=== PATIENT | male | born 1935 | race Caucasian/White ===

== ENCOUNTER → 2023-10-28 09:35 | Outpatient (REF) | payer OTHER, SELFPAY ==
[2023-10-28 11:21] LABS: Hematocrit 45.1 % (39.0-52.0); Hemoglobin 15.6 g/dL (13.0-18.0); Mean Corp Hgb Conc. 34.6 g/dL (33.0-37.0); Mean Corpuscular Volume 89.7 fL (80.0-94.0); Mean Platelet Volume 12.6 fL (7.4-10.4); Platelet Count 80 10^3/uL (130-400); Red Blood Cell Count 5.03 10^6/uL (4.70-6.10); White Blood Cell Count 3.4 10^3/uL (4.8-10.8)
[2023-10-28 11:38] LABS: Urine Albumin Negative (Neg - Trace); Urine Bilirubin 1+ (Negative); Urine Character Clear (Clear); Urine Color Amber; Urine Glucose Negative (Negative); Urine Ketone Trace (Negative); Urine Leukocyte Negative (Negative); Urine Nitrite Negative (Negative); Urine Occult Blood Negative (Negative); Urine Urobilinogen Negative (Neg - 1+)
[2023-10-28 12:11] LABS: TSH Reflex To Free T4 8.33 uIU/ml (0.47-4.68)
[2023-10-28 12:12] LABS: ALT (SGPT) 25 U/L (0-50); AST (SGOT) 42 U/L (17-59); Albumin 4.2 g/dl (3.5-5.0); Alkaline Phosphatase 249 U/L (38-126); Blood Urea Nitrogen 14 mg/dl (9-20); Calcium 9.5 mg/dl (8.4-10.2); Carbon Dioxide 23 mmol/L (22-30); Chloride 107 mmol/L (98-107); Glucose 101 mg/dl (70-99); HDL Cholesterol 66 mg/dl; LDL Cholesterol, Calculated 37 mg/dl; Potassium 4.1 mmol/L (3.5-5.1); Sodium 138 mmol/L (135-145); Total Bilirubin 1.4 mg/dl (0.2-1.3); Total Cholesterol 124 mg/dl (50-199); Total Protein 6.1 g/dl (6.3-8.2); Triglyceride 107 mg/dl (10-149); Very Low Density Lipoprotein 21 mg/dl (0-30); eGFR > 60.00
[2023-10-28 12:46] LABS: Folate 17.8 ng/ml (2.76-20); Vitamin B12 > 1000 pg/ml (239-931)
[2023-10-28 14:54] LABS: Absolute Neutrophils -Man Diff 1.3 10^3/uL (1.4-6.5); Band Neutrophils 1 % (0-3); Eosinophils 1 % (0-6); Lymphocytes 33 % (20-51); Monocytes 23 % (2-9); Myelocytes 4 % (-); Normal RBC Morphology Yes; Platelets Checked Yes; Segmented Neutrophils 38 % (42-75); Total Cells Counted 100
== END ==
LOC: REG 09:35
PROVIDERS: ATTENDING PHYSICIAN Nurse Practitioner Family; FAMILY PHYSICIAN Internal Medicine
DX: Z76.89 Persons encountering health services in other specified circumstances (principal); H90.5 Unspecified sensorineural hearing loss; F10.20 Alcohol dependence, uncomplicated; K21.9 Gastro-esophageal reflux disease without esophagitis; R19.4 Change in bowel habit; Z86.711 Personal history of pulmonary embolism; Z01.89 Encounter for other specified special examinations
CPT/HCPCS: 36415; 80053; 80061; 81003; 82607; 82746; 84439; 84443; 85025

== ENCOUNTER → 2023-11-01 10:19 | Outpatient (REF) | payer OTHER, SELFPAY ==
[2023-11-01 11:24] LABS: Hematocrit 43.3 % (39.0-52.0); Hemoglobin 15.1 g/dL (13.0-18.0); Mean Corp Hgb Conc. 34.9 g/dL (33.0-37.0); Mean Corpuscular Hgb 31.9 pg (27.0-31.0); Mean Corpuscular Volume 91.4 fL (80.0-94.0); Mean Platelet Volume 12.5 fL (7.4-10.4); Platelet Count 74 10^3/uL (130-400); Red Blood Cell Count 4.74 10^6/uL (4.70-6.10); Red Cell Dist. Width 15.9 % (11.5-14.5); White Blood Cell Count 3.3 10^3/uL (4.8-10.8)
[2023-11-01 11:28] LABS: INR 1.25; PT 15.7 Sec (11.4-14.6)
[2023-11-01 11:29] LABS: APTT 31.7 Sec (23.4-35.0)
[2023-11-01 12:14] LABS: Absolute Neutrophils -Man Diff 1.2 10^3/uL (1.4-6.5); Band Neutrophils 1 % (0-3); Eosinophils 1 % (0-6); Lymphocytes 36 % (20-51); Monocytes 24 % (2-9); Normal RBC Morphology Yes; Platelets Checked Yes; Segmented Neutrophils 38 % (42-75); Total Cells Counted 100
[2023-11-01 12:18] LABS: GGTP 169 U/L (15-73)
== END ==
LOC: REG 10:19
PROVIDERS: ATTENDING PHYSICIAN Nurse Practitioner Family
DX: R74.8 Abnormal levels of other serum enzymes (principal); R79.89 Other specified abnormal findings of blood chemistry
CPT/HCPCS: 36415; 82977; 85025; 85610; 85730

== ENCOUNTER → 2023-11-18 08:14 | Outpatient (REF) | payer OTHER, SELFPAY | LOC: HWRAD 08:14 | PROVIDERS: ATTENDING PHYSICIAN Nurse Practitioner Family | DX: R74.8 Abnormal levels of other serum enzymes (principal); R79.89 Other specified abnormal findings of blood chemistry | CPT/HCPCS: 76700 ==

== ENCOUNTER → 2023-12-14 09:48 | Outpatient (REF) | payer OTHER, SELFPAY ==
[2023-12-14 11:40] LABS: ALT (SGPT) 23 U/L (0-50); AST (SGOT) 32 U/L (17-59); Albumin 4.2 g/dl (3.5-5.0); Alkaline Phosphatase 215 U/L (38-126); Blood Urea Nitrogen 18 mg/dl (9-20); Calcium 9.6 mg/dl (8.4-10.2); Carbon Dioxide 21 mmol/L (22-30); Chloride 107 mmol/L (98-107); Glucose 106 mg/dl (70-99); Potassium 4.4 mmol/L (3.5-5.1); Sodium 142 mmol/L (135-145); Total Bilirubin 1.3 mg/dl (0.2-1.3); Total Protein 6.2 g/dl (6.3-8.2); eGFR > 60.00
[2023-12-16 01:41] LABS: Mitochondrial M2 Ab, IgG 3.4 Units (0.0-24.9)
== END ==
LOC: REG 09:48
PROVIDERS: ATTENDING PHYSICIAN Nurse Practitioner Family
DX: R74.8 Abnormal levels of other serum enzymes (principal)
CPT/HCPCS: 36415; 80053; 86381

== ENCOUNTER → 2024-01-25 10:35 | Outpatient (REF) | payer OTHER, SELFPAY ==
[2024-01-25 11:30] LABS: Hematocrit 38.6 % (39.0-52.0); Hemoglobin 13.4 g/dL (13.0-18.0); Mean Corp Hgb Conc. 34.7 g/dL (33.0-37.0); Mean Corpuscular Hgb 28.6 pg (27.0-31.0); Mean Corpuscular Volume 82.5 fL (80.0-94.0); Platelet Count 67 10^3/uL (130-400); Red Blood Cell Count 4.68 10^6/uL (4.70-6.10); Red Cell Dist. Width 15.9 % (11.5-14.5); White Blood Cell Count 2.8 10^3/uL (4.8-10.8)
[2024-01-25 11:57] LABS: ALT (SGPT) 22 U/L (0-50); AST (SGOT) 34 U/L (17-59); Albumin 3.9 g/dl (3.5-5.0); Alkaline Phosphatase 238 U/L (38-126); Blood Urea Nitrogen 16 mg/dl (9-20); Calcium 9.3 mg/dl (8.4-10.2); Carbon Dioxide 19 mmol/L (22-30); Chloride 108 mmol/L (98-107); Glucose 101 mg/dl (70-99); HDL Cholesterol 57 mg/dl; LDL Cholesterol, Calculated 38 mg/dl; Potassium 4.3 mmol/L (3.5-5.1); Sodium 140 mmol/L (135-145); Total Bilirubin 1.5 mg/dl (0.2-1.3); Total Cholesterol 113 mg/dl (50-199); Triglyceride 94 mg/dl (10-149); Very Low Density Lipoprotein 18 mg/dl (0-30); eGFR > 60.00
[2024-01-25 14:50] LABS: Absolute Neutrophils -Man Diff 1.6 10^3/uL (1.4-6.5); Atypical Lymphocytes 2 %; Band Neutrophils 3 % (0-3); Lymphocytes 18 % (20-51); Monocytes 19 % (2-9); Myelocytes 2 % (-); Segmented Neutrophils 56 % (42-75)
[2024-01-25 14:51] LABS: Normal RBC Morphology Yes; Platelets Checked Yes; Total Cells Counted 100
== END ==
LOC: REG 10:35
PROVIDERS: ATTENDING PHYSICIAN Internal Medicine Geriatric Medicine; FAMILY PHYSICIAN Internal Medicine
DX: R79.89 Other specified abnormal findings of blood chemistry (principal); Z01.89 Encounter for other specified special examinations; Z79.899 Other long term (current) drug therapy
CPT/HCPCS: 36415; 80053; 80061; 85025

== ENCOUNTER 2024-03-05 19:50 | Inpatient (IN) | payer OTHER, SELFPAY ==
[2024-03-05] VITALS (16 sets, daily range): BP systolic 94–133; BP diastolic 44–89; BMI 25.3
--- NOTE | 2024-03-05 11:24 | ED.GENMED ---
History of Present Illness
<Hayley Yun SECURITY ASSESSOR - Last Filed: 03/05/24 18:24>
General
Chief Complaint: Abdominal Pain
Source: patient, spouse and family (daughter Stephanie at bedside)
Time Seen by Provider: 03/05/24 11:04
History of Present Illness
History of Present Illness:
88 yo male with h/o PE approx 3 yrs ago, Xarelto was stopped 3 weeks ago, hx Cirrhosis of Liver, ERD, Hypothyroid, Alcohol abuse, presents for bloating of stomach. Daughter at bedside states she recently moved pt and his up from [place], he
has not had an alcoholic drink in over 3 weeks. His abdomen has been slowly enlarging over a period of weeks. Pr states 'it's never been this big.'
Pt denies CP, abdominal pain. There has been some SOB. Daughter states he seems a little confused at times also.
States moving bowels and urinated normally
Past History
<Hayley Yun SECURITY ASSESSOR - Last Filed: 03/05/24 18:24>
Past History
ED Past Medical History: GERD, Hypercholesterolemia, Hypothyroidism, Other (Alcoholic cirrhosis) and Other (History of DVT/PE remote stopped Xarelto 3 weeks ago)
ED Past Surgical History: Appendectomy, Cholecystectomy and Orthopedic
Social History
Tobacco: Non-smoker
Alcohol: Chronic alcoholic
Personal:
Living: with family (Recently moved here from [place], daughter is in the process of getting them settled and eventually moving in with her )
Employment: Retired
Review of Systems
<Hayley Yun SECURITY ASSESSOR - Last Filed: 03/05/24 18:24>
Review of Systems
Allergies reviewed?: Yes
All Other Systems: ROS reviewed and negative except as documented in HPI and ROS
Constitutional: Denies fever
Respiratory: Reports trouble breathing (daughter has noted some shortness of breath)
Cardiac: Denies chest pain
ABD/GI: Reports other (gradually increasing abdominal distention ); Denies abdominal pain, nausea, vomiting or diarrhea
: Denies dysuria or difficulty voiding
Musculoskeletal: Reports edema (both lower legs a little swollen)
Neurological: Reports no symptoms
Phy Exam
<Hayley Yun, SECURITY ASSESSOR - Last Filed: 03/05/24 18:24>
Physical Exam
Physical Exam:
GENERAL: No acute distress. A&Ox3.
CONSTITUTIONAL: Afebrile.
EYES: PERRL, conjunctivae normal, nonicteric
ENMT: moist mucus membranes, Pharynx nl
RESPIRATORY: Regular respirations, nonlabored, lungs clear.
CARDIOVASCULAR: Regular rate and rhythm, no murmurs, no rubs.
GI: Soft, nontender, normal BS
MUSCULOSKELETAL: Moves with ease. Well perfused.
SKIN: Warm, dry, pink
PSYCH: Normal mood and affect. Well kept, interactive and appropriate
NEUROLOGIC: Awake, alert and oriented. No focal neurological deficits
Course
<Hayley Yun, SECURITY ASSESSOR - Last Filed: 03/05/24 18:24>
Orders/Labs/Results
Orders:
Orders
03/05/24
US Abdomen Limited Urgent
03/05/24 11:34
Consult Interventional Radiology [IRAD CONSULT] Urgent
Consulting Provider: Salvador Romero
Was physician already notified: Yes
Reason for Consult/Procedure: abd ascites, alcoholic cirrhosis
Acknowledgement that appropriate orders are entered: Yes
Ammonia Urgent
Complete Blood Count/With Diff Urgent
Comprehensive Metabolic Panel Urgent
Lipase Urgent
Manual Differential Urgent
03/05/24 14:04
CT Abd/Pel (IV only)-DH only Urgent
Comment:
Reason For Exam: abdominal distension
Abnormal Lab Results
03/05/24
11:34
WBC 3.1 L 10^3/uL
(4.8-10.8)
RBC 4.56 L 10^6/uL
(4.70-6.10)
Hct 38.3 L %
(39.0-52.0)
RDW 18.4 H %
(11.5-14.5)
Plt Count 52 L 10^3/uL
(130-400)
MPV 10.8 H fL
(7.4-10.4)
Band Neutrophils 5 H %
(0-3)
Lymphocytes (Manual) 17 L %
(20-51)
Monocytes (Manual) 29 H %
(2-9)
Carbon Dioxide 18 L mmol/L
(22-30)
Glucose 108 H mg/dl
(70-99)
Total Bilirubin 3.5 H mg/dl
(0.2-1.3)
Alkaline Phosphatase 283 H U/L
(38-126)
Total Protein 5.6 L g/dl
(6.3-8.2)
03/05/24 11:34
03/05/24 11:34
Vital Signs
Initial and Last Documented VS:
Initial Vital Signs
Temp Pulse BP Pulse Ox
97.8 F 96 118/69 95
03/05/24 10:51 03/05/24 10:51 03/05/24 10:51 03/05/24 10:51
Last Documented Vital Signs
Temp Pulse Resp BP Pulse Ox
97.8 F 89 21 113/66 94
03/05/24 10:51 03/05/24 18:00 03/05/24 18:00 03/05/24 18:00 03/05/24 11:40
<Maurice Nowak, DO - Last Filed: 03/05/24 11:39>
Orders/Labs/Results
Orders:
Orders
03/05/24
US Abdomen Limited Urgent
03/05/24 11:34
Consult Interventional Radiology [IRAD CONSULT] Urgent
Consulting Provider: Salvador Romero
Was physician already notified: Yes
Reason for Consult/Procedure: abd ascites, alcoholic cirrhosis
Acknowledgement that appropriate orders are entered: Yes
Ammonia Urgent
Complete Blood Count/With Diff Urgent
Comprehensive Metabolic Panel Urgent
Lipase Urgent
Manual Differential Urgent
03/05/24 14:04
CT Abd/Pel (IV only)-DH only Urgent
Comment:
Reason For Exam: abdominal distension
Abnormal Lab Results
03/05/24
11:34
WBC 3.1 L 10^3/uL
(4.8-10.8)
RBC 4.56 L 10^6/uL
(4.70-6.10)
Hct 38.3 L %
(39.0-52.0)
RDW 18.4 H %
(11.5-14.5)
Plt Count 52 L 10^3/uL
(130-400)
MPV 10.8 H fL
(7.4-10.4)
Band Neutrophils 5 H %
(0-3)
Lymphocytes (Manual) 17 L %
(20-51)
Monocytes (Manual) 29 H %
(2-9)
Carbon Dioxide 18 L mmol/L
(22-30)
Glucose 108 H mg/dl
(70-99)
Total Bilirubin 3.5 H mg/dl
(0.2-1.3)
Alkaline Phosphatase 283 H U/L
(38-126)
Total Protein 5.6 L g/dl
(6.3-8.2)
03/05/24 11:34
03/05/24 11:34
Vital Signs
Initial and Last Documented VS:
Initial Vital Signs
Temp Pulse BP Pulse Ox
97.8 F 96 118/69 95
03/05/24 10:51 03/05/24 10:51 03/05/24 10:51 03/05/24 10:51
Last Documented Vital Signs
Temp Pulse Resp BP Pulse Ox
97.8 F 89 21 113/66 94
03/05/24 10:51 03/05/24 18:00 03/05/24 18:00 03/05/24 18:00 03/05/24 11:40
<Hayley Yun, SECURITY ASSESSOR - Last Filed: 03/05/24 18:24>
MDM/Problems Addressed
Differential Diagnosis Includes:
Ascites
MDM/Problems Addressed:
88 yo male with h/o PE approx 3 yrs ago, Xarelto was stopped 3 weeks ago, hx Cirrhosis of Liver, ERD, Hypothyroid, Alcohol abuse, presents for bloating of stomach. Daughter at bedside states she recently moved pt and his up from [place], he
has not had an alcoholic drink in over 3 weeks. His abdomen has been slowly enlarging over a period of weeks. Pr states 'it's never been this big.'
Pt denies CP, abdominal pain. There has been some SOB. Daughter states he seems a little confused at times also. States moving bowels and urinated normally
Afebrile, NAD
Abdomen distended, soft, nontender
Dr. Nowak in to examine patient. Agrees with IR consult
12:30 p.m.
CBC unremarkable
CMP Bicarb 18 otherwise unremarkable. Bilirubin 3.5
IR states bit enough fluid to drain
Will procede to Ct scan
5:[address] Abd/Pelvis w IV only contrast Radiology report reviewed: IMPRESSION: Small right pleural effusion. Atelectasis in the posterior right lower lung. Mild interstitial fibrosis in the inferior left lower lung. Linear densities within the
left lower lung compatible with scarring and/or linear atelectasis.
Enlarged lymph nodes within the mediastinum, the right anterior pericardium, and within the abdomen. The degree of enlargement raises concern for neoplastic process such as leukemia or lymphoma.
Cirrhosis of the liver. Splenomegaly. Recannulized paraumbilical vein. Paraesophageal varices.
Moderate amount of ascites within the abdomen and pelvis.
Fatty infiltration of the pancreas.
Wall thickening diffusely involving the entire colon. This is suggestive of colitis. Portal colopathy is also a consideration.
Lytic lesions within the lower thoracic vertebrae appear to be related to Schmorl's nodes involving the endplates. Neoplastic lesions are a differential consideration, but felt to be less likely. Continued CT follow-up could be considered.
Bilateral hip prostheses, with resultant streak artifact.
6:00 p.m.
Plan: Admit: Abdominal swelling, Ascites with dyspnea
Hospitalist notified of admission. Family and pt updated
<Hayley Yun, SECURITY ASSESSOR - Last Filed: 03/05/24 18:24>
*Critical Care Note
Total Time (30-74mins, 75-104mins- exclusive of procedures): Not Applicable
ED Attending Note
<Hayley Yun, SECURITY ASSESSOR - Last Filed: 03/05/24 18:24>
-
Portions of this chart may have been created with voice recognition software.� Occasional wrong word or��sound alike� substitutions may have occurred due to the inherent limitations of voice recognition software.
<Maurice Nowak DO - Last Filed: 03/05/24 11:39>
ED Attending Note
Patient seen and examined by attending physician: Yes
I performed the substantive portion of visit, reviewed & personally made and approve the management plan that is documented in note by myself or JOSE.: Yes
ED Attending Note:
I evaluated patient at bedside. Patient has increasing abdominal girth in the setting of history of alcoholic liver disease. He will not be seeing GI until another couple of months. He has never had an abdominal paracentesis in the past.
Discharge Plan
Departure
Patient Disposition: Admit
Date of Disposition: 03/05/24
Time of Disposition: 18:10
Admit to: Med/Surg
Presentation/result/management discussed w/ accepting /DO: Hospitalist
Condition: Fair
Discharge Problem:
Abdominal ascites, SAUNDERS (dyspnea on exertion)
Prescriptions:
No Action
biotin 5 mg Capsule
5 mg PO DAILY
famotidine [Pepcid] 40 mg Tablet
40 mg PO HS
simvastatin [Zocor] 10 mg Tablet
10 mg PO HS
cyanocobalamin (vitamin B-12) 1,000 mcg Tablet
1,000 mcg PO DAILY
omeprazole 40 mg Capsule,Delayed Release(Dr/Ec)
40 mg PO QPM
liothyronine 5 mcg Tablet
10 mcg PO DAILY
levothyroxine [Synthroid] 88 mcg Tablet
88 mcg PO DAILY
gabapentin 300 mg Capsule
300 mg PO HS
montelukast [Singulair] 10 mg Tablet
10 mg PO HS
cholecalciferol (vitamin D3) [Vitamin D3] 25 mcg (1,000 unit) Tablet
25 mcg PO DAILY
Glucosamine Chondroitin 550-30-1 mg Capsule
1 cap PO DAILY
loperamide 2 mg Tablet
2 mg PO DAILYPRN PRN (Reason: dairrhea)
Referrals:
Dg Childs DO [Family Provider] -
Interventions
Interventions:
*Risk Screen - Suicide Last Done: 03/05/24 10:57
*General Assessment Last Done: 03/05/24 11:33
*Neglect/Abuse Screening Last Done: 03/05/24 10:57
ED- Fall Risk Assessment Last Done: 03/05/24 11:40
*ED COVID-19 Vaccine History Last Done: 03/05/24 11:33
[facility] Assessment Last Done: 03/05/24 11:31
Discharge Date and Time
Print Language: MALAGASY
[2024-03-05 12:01] LABS: Ammonia 25 umol/L (9-30)
[2024-03-05 12:07] LABS: ALT (SGPT) 20 U/L (0-50); AST (SGOT) 52 U/L (17-59); Albumin 3.6 g/dl (3.5-5.0); Alkaline Phosphatase 283 U/L (38-126); Blood Urea Nitrogen 17 mg/dl (9-20); Calcium 9.3 mg/dl (8.4-10.2); Carbon Dioxide 18 mmol/L (22-30); Chloride 107 mmol/L (98-107); Estimated Creatinine Clearance 70 ml/min; Glucose 108 mg/dl (70-99); Lipase 70 U/L (23-300); Potassium 4.3 mmol/L (3.5-5.1); Sodium 139 mmol/L (135-145); Total Bilirubin 3.5 mg/dl (0.2-1.3); Total Protein 5.6 g/dl (6.3-8.2); eGFR > 60.00
[2024-03-05 12:17] LABS: Hematocrit 38.3 % (39.0-52.0); Mean Corp Hgb Conc. 33.9 g/dL (33.0-37.0); Mean Corpuscular Hgb 28.5 pg (27.0-31.0); Red Blood Cell Count 4.56 10^6/uL (4.70-6.10); Red Cell Dist. Width 18.4 % (11.5-14.5); White Blood Cell Count 3.1 10^3/uL (4.8-10.8)
[2024-03-05 13:18] LABS: Absolute Neutrophils -Man Diff 1.5 10^3/uL (1.4-6.5); Atypical Lymphocytes 2 %; Band Neutrophils 5 % (0-3); Lymphocytes 17 % (20-51); Mean Platelet Volume 10.8 fL (7.4-10.4); Metamyelocytes 2 % (-); Monocytes 29 % (2-9); Normal RBC Morphology Yes; Platelet Count 52 10^3/uL (130-400); Platelets Checked Yes; Segmented Neutrophils 45 % (42-75)
[2024-03-05 13:19] LABS: Total Cells Counted 100
--- NOTE | 2024-03-05 18:20 | HPS.HSE ---
Family Physician
-
Family Physician: Dg Childs
Chief Complaint
-
Abdominal Pain
History of Present Illness
Patient is a 88-year-old male with past medical history significant for hyperlipidemia, hypothyroidism, alcoholic cirrhosis, GERD and history of DVT/PE stopped Xarelto 3 weeks ago. Patient presented to [facility] for evaluation of increasing
abdominal discomfort. Patient states that abdomen girth has been enlarging over past couple of weeks and primary provider instructed him if it became uncomfortable to go to emergency for evaluation. Patient with known alcohol dependency drinking 1.5
ounces of vodka 6+ drinks per night, last drink 2.5 weeks ago. Patient denies alcohol withdraw symptoms, daughter states she believes he has had audible and visual hallucinations. Patient denies fever, chills, cough, chest pain, shortness of breath,
nausea, vomiting, diarrhea, constipation or urinary symptoms.
Medical History
Past Medical History
Past Medical History: Reports Other
Additional Past Medical History:
Hyperlipidemia
Hypothyroidism
Alcoholic cirrhosis
GERD
History of DVT/PE stopped Xarelto 3 weeks ago
Basal cell carcinoma with MOHS
Past Surgical History: Reports Other
Additional Past Surgical History:
Appendectomy
Cholecystectomy
Hernia repair x2
MOHS
Social History
Tobacco: Former Smoker
Alcohol: Chronic Alcoholic (last drink 3 weeks ago)
Drug: None
Personal:
Living: With Family
Employment: Retired
Family History
Family History: Not pertinent
Allergies / Home Medications
Allergies reflects when Allergies were last updated in [facility].
Home Medications with original date entered in [facility]
Allergy/Medication List:
Allergies
Allergy/AdvReac Type Severity Reaction Status Date / Time
celecoxib [From Celebrex] Allergy Swelling Verified 03/05/24 11:01
Home Medications
biotin 5 mg capsule 5 mg PO DAILY 11/25/24
cholecalciferol (vitamin D3) 25 mcg (1,000 unit) tablet (Vitamin D3) 25 mcg PO DAILY 03/05/24
cyanocobalamin (vitamin B-12) 1,000 mcg tablet 1,000 mcg PO DAILY 03/05/24
famotidine 40 mg tablet (Pepcid) 40 mg PO HS 03/05/24
gabapentin 300 mg capsule 300 mg PO HS 03/05/24
glucosamine sulf dipot chlr,msm,chond 550 mg-C 30 mg-princess 1 mg capsule (Glucosamine Chondroitin) 1 cap PO DAILY 03/05/24
levothyroxine 88 mcg tablet (Synthroid) 88 mcg PO DAILY 03/05/24
liothyronine 5 mcg tablet 10 mcg PO DAILY 03/05/24
loperamide 2 mg tablet 2 mg PO DAILYPRN PRN dairrhea 03/05/24
montelukast 10 mg tablet (Singulair) 10 mg PO HS 03/05/24
omeprazole 40 mg capsule,delayed release 40 mg PO QPM 03/05/24
simvastatin 10 mg tablet (Zocor) 10 mg PO HS 03/05/24
Review of Systems
-
History Source: Patient
Constitutional: Reports No Symptoms
EENT: Reports No Symptoms
Respiratory: Reports No Symptoms
Cardiac: Reports No Symptoms
Abdomen/GI: Reports Other (increasing girth and discomfort)
: Reports No Symptoms
Musculoskeletal: Reports No Symptoms
Skin: Reports No Symptoms
Neurological: Reports No Symptoms
Endocrine: Reports No Symptoms
Hematologic/Lymphatic: Reports No Symptoms
Psych: Reports No Symptoms
Physical Exam
Vital Signs
Vital Signs
Temp Pulse Resp BP Pulse Ox
97.8 F 89 21 113/66 94
03/05/24 10:51 03/05/24 18:00 03/05/24 18:00 03/05/24 18:00 03/05/24 11:40
Physical Exam
General: Well Developed, Well Nourished, No Apparent Distress, Comfortable and Conversant
HEENT: NormoCephalic, Moist mucous membranes, Atraumatic, [place] Conjunctivae and Hearing Impaired
Respiratory: Clear and Non Labored Respirations; No Wheezes, Rales, Rhonchi or Crackles
Cardiac: S1/S2 and Regular Rhythm; No Murmur, Rub or Gallop
GI: Soft, Non Tender, Normal Bowel Sounds and Distended; No Organomegaly
Rectal: Deferred by Provider
Genito-urinary: Deferred by me
Musculoskeletal: No Clubbing, No Cyanosis and No Edema
Skin: Warm, Dry and IV/Catheter Site
Neuro: Awake, Alert, AO x 3 and Nonfocal/grossly intact
Hematologic/Lymphatic: No Lymphadenopathy
Psych: Calm and Intact Judgment/Insight
Laboratory Results
-
03/05/24 11:34
03/05/24 11:34
Laboratory Results
Total Bilirubin 3.5 mg/dl (0.2-1.3) H 03/05/24 11:34
AST 52 U/L (17-59) 03/05/24 11:34
ALT 20 U/L (0-50) 03/05/24 11:34
Alkaline Phosphatase 283 U/L (38-126) H 03/05/24 11:34
Lipase 70 U/L (23-300) 03/05/24 11:34
Data Reviewed
-
CT Scan: Report Reviewed by me (Abd: Small right pleural effusion, Enlarged lymph nodes within the mediastinum, the right anterior pericardium, and within the abdomen. The degree of enlargement raises concern for neoplastic process such as leukemia
or lymphoma.)
Ultrasound: Report Reviewed by me (Abd: Trace volume of ascites not sufficient for percutaneous drainage.)
Lab Data: Labs Reviewed by me (Plt 52, Total Bilirubin 3.5, Alk Phis 283)
Impression/Plan
-
IMPRESSION/PLAN:
#Mild confusion with POS bandemia
DDX: infectious process vs. TME vs. ETOH withdraw
- Ammonia 25
- Admit to Med/Surg
- UA [employer]
- Blood cultures
- Procal
- Empiric Zosyn
#Concern for neoplastic process
- Lytic lesions within the lower thoracic vertebrae: Elevated AKP
- Consult Oncology
#Hyperlipidemia
- continue simvastatin
#Hypothyroidism
- continue levothyroxine and liothyronine
#Alcohol Dependency
#Alcoholic cirrhosis
- MSAS protocol
- GI consult
- IR consult: not enough ascites to drain
#GERD
- continue famotidine and omeprazole
#History of DVT/PE stopped Xarelto 3 weeks ago
- monitor
Full Code
DVT Px: SCDs
--- NOTE | 2024-03-05 19:06 | W.PN.UPDATE ---
Update Note
Progress Note Update
This note serves as an addendum to the H&P by cardiovascular operating room nurse JOSE Karolyn Matthews
HPI
88M Recently moved from [place] to be with daughter HX ETOH abuse, Cirrhosis, HX DVT/ PE, DC'd Xarelto 3 weeks ago, Hypothyroid seen at ER:
- bloating of stomach
- Not had ETOH lyudmila 3 weeks
- reports abdomen has been slowly enlarging over a period of weeks
- some SOB.
- Daughter states he seems a little confused at times
ROS:
Denies CP, abdominal pain.
States moving bowels and urinated normally
PHX: see above
Vital Signs
Temp Pulse Resp BP Pulse Ox
97.8 F 89 21 113/66 94
03/05/24 10:51 03/05/24 18:00 03/05/24 18:00 03/05/24 18:00 03/05/24 11:40
PE
GENERAL: plesantly confused
CONSTITUTIONAL: Afebrile.
EYES: PERRL nonicteric
ENMT: moist mucus membranes, Pharynx nl
RESPIRATORY: Regular respirations, nonlabored, lungs clear.
CARDIOVASCULAR: Regular rate and rhythm, no murmurs, no rubs.
GI: Soft, nontender, normal BS
MUSCULOSKELETAL: Moves with ease. Well perfused.
SKIN: Warm, dry, pink
PSYCH: Normal mood and affect. Well kept, interactive and appropriate
NEUROLOGIC: Awake, alert and oriented. No flapping tremors
Laboratory Tests
03/05/24
11:34
WBC 3.1 L
Hgb 13.0
Plt Count [address] Abd/Pel (IV only)-DH only
- Small right pleural effusion.
- Atelectasis in the posterior right lower lung.
- Mild interstitial fibrosis in the inferior left lower lung.
- Linear densities within the left lower lung compatible with scarring and/or linear atelectasis.
- Enlarged lymph nodes within the mediastinum, the right anterior pericardium, and within the abdomen.
- The degree of enlargement raises concern for neoplastic process such as leukemia or lymphoma.
- Cirrhosis of the liver. Splenomegaly. Recannulized paraumbilical vein. Paraesophageal varices.
- Moderate amount of ascites within the abdomen and pelvis.
- Fatty infiltration of the pancreas.
- Wall thickening diffusely involving the entire colon. This is suggestive of colitis.
- Portal colopathy is also a consideration.
- Lytic lesions within the lower thoracic vertebrae appear to be related to Schmorl's nodes involving the endplates.
- Neoplastic lesions are a differential consideration, but felt to be less likely. Continued CT follow-up could be considered.
- Bilateral hip prostheses, with resultant streak artifact.
NO PRIOR DH admission:
ASSESSMENT & PLAN
Mild confusion with POS bandemia
DDX : acute infective process, TME, ETOH WDS
- NH3 is at 25 and unlikely hepatic encephalopathy
- UA
- BCx
- check PCT
- Empiric Zosyn
HX ETOH use disorder
last ETOH 3 weeks ago
1.5 oz x 6 Vod ka a day till 2 weeks ago
- MSAS protocol Hi risk
Bloating abdominal sensation
Cirrhosis of the liver. Splenomegaly., re-cannulized paraumbilical vein.
Paraesophageal varices.
Moderate amount of ascites within the abdomen and pelvis
- eval by IR and not enough ascites fluid to drain
- GI consult
Concerning for neoplastic process: inclear primary origin DDX Lyphoma , HCC
Mediastinum and intraabdominal LAD
Lytic lesions within the lower thoracic vertebrae : Elevated AKP
- check LDH
- Oncology consult
Bi- cytoepneia with Leucopenia and severe thrombocytopenia proabaly due to chr liver dz and ETOH use
Hgb 13, nl MCV
5 % band
- await Heme Onco evaluation
Hypothyroid
- on LT4
DVT Px: SCD
Full code
IP MS
[2024-03-05 19:45] LABS: LDH 432 U/L (120-246)
[2024-03-05 19:59] LABS: Procalcitonin 0.33 ng/ml (0.0-0.25)
[2024-03-05] MEDS: NEURONTIN 300 MG PO (22:23)
[2024-03-05] MEDS: SINGULAIR 10 MG PO (22:23)
[2024-03-05] MEDS: PEPCID 40 MG PO (22:23)
[2024-03-06] VITALS (9 sets, daily range): BP systolic 89–131; BP diastolic 61–75; BMI 24.9
[2024-03-06] MEDS: SYNTHROID 88 MCG PO (06:01)
[2024-03-06 06:08] LABS: Hematocrit 37.5 % (39.0-52.0); Hemoglobin 12.2 g/dL (13.0-18.0); Mean Corp Hgb Conc. 32.5 g/dL (33.0-37.0); Mean Corpuscular Hgb 27.9 pg (27.0-31.0); Mean Corpuscular Volume 85.6 fL (80.0-94.0); Mean Platelet Volume 10.2 fL (7.4-10.4); Platelet Count 48 10^3/uL (130-400); Red Blood Cell Count 4.38 10^6/uL (4.70-6.10); Red Cell Dist. Width 18.4 % (11.5-14.5); White Blood Cell Count 2.7 10^3/uL (4.8-10.8)
[2024-03-06 06:27] LABS: Blood Urea Nitrogen 14 mg/dl (9-20); Carbon Dioxide 20 mmol/L (22-30); Chloride 108 mmol/L (98-107); Estimated Creatinine Clearance 80 ml/min; Glucose 93 mg/dl (70-99); Sodium 139 mmol/L (135-145); eGFR > 60.00
--- NOTE | 2024-03-06 07:52 | W.PN.HOSP.TC ---
Today's Communication/Plan
-
see bold
Assessment / Plan
Assessment / Plan
Gen: NAD, Awake and alert
Eyes: EOMI, PERRLA, no scleral icterus.
Neck: supple.
CV: RRR, +S1/S2, no m/r/g.
Resp: CTAB, no rales, wheezes, or rhonchi.
Abd: +BS, soft, NT, moderate distention with ascites
Skin: No rashes.
Neuro: CN 2-12 intact, non-focal.
Psych: Normal mood and affect.
CT A/P: Small right pleural effusion. Atelectasis in the posterior right lower lung. Mild interstitial fibrosis in the inferior left lower lung. Linear densities within the left lower lung compatible with scarring and/or linear atelectasis. Enlarged
lymph nodes within the mediastinum, the right anterior pericardium, and within the abdomen. The degree of enlargement raises concern for neoplastic process such as leukemia or lymphoma. Cirrhosis of the liver. Splenomegaly. Recannulized
paraumbilical vein. Paraesophageal varices. Moderate amount of ascites within the abdomen and pelvis. Fatty infiltration of the pancreas. Wall thickening diffusely involving the entire colon. This is suggestive of colitis. Portal colopathy is also a
consideration. Lytic lesions within the lower thoracic vertebrae appear to be related to Schmorl's nodes involving the endplates. Neoplastic lesions are a differential consideration, but felt to be less likely. Continued CT follow-up could be
considered. Bilateral hip prostheses, with resultant streak artifact.
Acute metabolic encephalopathy:
-possible colitis on CT
-bandemia noted
-cont empiric Zosyn
-follow BCxs
-could also be related to uncontrolled hypothyroidism, increasing Levoxyl as below
-NH3 25, no hepatic encephalopathy
-procal noted but is not indicated and has no meaning in this case
Concern for neoplastic process, pancytopenia:
-Lytic lesions within the lower thoracic vertebrae
-Elevated AP
-c/s ONC
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
-Reportedly last drink was 2.5 weeks CANVAS BASTER
-MSAS protocol
-c/s GI consult
-as per IR not enough ascites to drain
Other problems:
Hyperlipidemia: Cont statin
Hypothyroidism: TSH 26, increase levothyroxine to 125mcg and stop liothyronine
GERD: cont famotidine and omeprazole
h/o DVT/PE: stopped Xarelto 3 weeks CANVAS BASTER. Cont to hold with thrombocytopenia.
FULL/SCDs
Total time spent on today's encounter was 50 minutes which included time spent in counseling the patient/family regarding diagnosis and treatment plan as listed above, goals of care, and symptom management. Case was discussed with nursing staff,
specialists, and care coordinators/case management. All labs and imaging personally reviewed by me. Remainder the time spent in detailed review of previous records, lab data, imaging, and other medical provider documentation.
Anticipated Discharge: > 48 hours
Subjective/Interval History
-
Date of Service: March 06, 2024
Denies CP/SOB/abd pain.
Objective Data
-
Labs:
Laboratory Results
03/06/24
05:45
WBC 2.7 L
Hgb 12.2 L
Hct 37.5 L
Plt Count 48 L
Sodium 139
Potassium 4.0
Chloride 108 H
Carbon Dioxide 20 L
BUN 14
Creatinine 0.7
Glucose 93
Calcium 9.0
Vital Signs:
Vital Signs
Temp Pulse Resp BP Pulse Ox
98.4 F 98 18 105/65 94
03/06/24 07:13 03/05/24 23:43 03/05/24 23:43 03/06/24 07:11 03/06/24 07:13
I&O
03/05/24 03/06/24 03/07/24
06:59 06:59 06:59
Output Total 200 / 200
Balance -200 / -200
[2024-03-06 08:47] LABS: Free T4 1.08 ng/dl (0.78-2.19)
[2024-03-06] MEDS: VITAMIN B-12 1000 MCG PO (09:25)
[2024-03-06] MEDS: VITAMIN D3 (cholecalciferol) 25 MCG PO (09:25)
--- NOTE | 2024-03-06 10:31 | CON.GI ---
Addendum entered and electronically signed by Krishna Orozco MD 03/06/24 13:34:
I saw and examined the patient.
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
Comment: 88yo male presents with increased abd girth. Has hx EtOH cirrhosis, followed [place] to moving [place] here. Drank 6-8oz vodka daily for years. US not enough fluid to tap. CT shows cirrhosis, splenomegaly, paraesophageal varices,
enlargeed LN in mediastinum,pericardium, abdomen, colitis vs portal colopathy, moderate ascites. Oncology has been consulted. Denies abd pain, BPR, melena. He quit EtOH 2 weeks ago.
REC:
Check hepatitis serologies, iron studies, autoimmune labs, AFP
Check INR to calculate MELD
EtOH cessation reinforced
T/C initiating diuretics
Will need OP follow up and eventual EGD to assess varices seen on CT
Addendum entered and electronically signed by SHAD Coates 03/06/24 12:33:
will add hepatitis, AFP and liver serology work up
Original Note:
Consultation
-
Date/Time Consultation Requested: 03/05/24 1130
Date/Time Consultation Performed: 03/06/24 1030
Requesting Provider: SHAD Johnson
Performing Provider: SHAD Martinez, Krishna Orozco MD
Reason for Consultation: cirrhosis/ abnormal imaging
Medical History
Chief Complaint / HPI
Chief Complaint: abdominal distention, confusion
History of Present Illness:
Pt is an 88yo with hx cirrhosis (newly diagnosed but per family ? noted on prior records from [place]), ETOH abuse, GERD, hypothyroidism, hypercholesterolemia, hearing loss, basal cell with prior mohs surgery, hx PE(off anticoagulation as of 3
weeks ago ), prior quentin, appe, b/l hip surgery, presents to ER with abdominal distention.Pt with US done in November with hepatic steatosis/cirrhosis, splenomegaly. Repeat limited US on admission with trace ascites unable to drain. Ct noted with
small effusion, interstitial fibrosis, enlarged nodes in mediastinum, anterior pericardium, abdomen with concern for neoplastic process. Also noted changes of cirrhosis, splenomegaly, recannulization paraumbilical vein, paraesophageal varices with
moderate ascites. Fatty pancreas, colitis possible colopathy, lytic spinal lesions schmorls nodules vs other neoplastic lesions. Labs on admission notable for 3.5, AST 52, ALT 20, alk phos 283, lipase 70, TSH 26 with T4 1.08. Procal 0.33, LDH 432,
hbg 12,1, WBC 3.1, but noted bandemia, platelets 52,000 and ammonia 25.
In review with family he was noted with some increased abdominal girth with pants fitting tight. He is also noted with mild confusion and sleep difficulties. He admits to ETOH 6-12 oz daily possible more per family but quit about 2 1/2 weeks
ago. He did have some loose stool yesterday but denies dysphagia, GERD, nausea, vomiting, hematemesis, abdominal pain, constipation, blood or black in stools. Pt admits to Tylenol PM 2 tab nightly for years.
Past Medical History
Past Medical History: Cancer (basal cell), GERD, Hypercholesterolemia, Hypothyroidism and Other (PE, cirrhosis, ETOH abuse)
Past Surgical History: Appendectomy, Cholecystectomy, Orthopedic (b/l hip surgery ) and Other (mohs surgery)
Social History
Tobacco: Former Smoker
Alcohol: Chronic Alcoholic (6-12 oz daily but per family may have been increased amounts )
Drug: None
Personal:
Living: With Family
Employment: Retired
Family History
Family History: Other (no family hx cirrhosis, or GI malignancies )
Allergies / Home Medications
Allergy/AdvReac Type Severity Reaction Status Date / Time
celecoxib [From Celebrex] Allergy Swelling Verified 03/05/24 11:01
�Medication �Instructions �Recorded
biotin 5 mg capsule 5 mg PO DAILY 03/05/24
cholecalciferol (vitamin D3) 25 25 mcg PO DAILY 03/05/24
mcg (1,000 unit) tablet (Vitamin
D3)
cyanocobalamin (vitamin B-12) 1,000 mcg PO DAILY 03/05/24
1,000 mcg tablet
famotidine 40 mg tablet (Pepcid) 40 mg PO HS 03/05/24
gabapentin 300 mg capsule 300 mg PO HS 03/05/24
glucosamine sulf dipot 1 cap PO DAILY 03/05/24
chlr,msm,chond 550 mg-C 30 mg-princess
1 mg capsule (Glucosamine
Chondroitin)
levothyroxine 88 mcg tablet 88 mcg PO DAILY 03/05/24
(Synthroid)
liothyronine 5 mcg tablet 10 mcg PO DAILY 03/05/24
loperamide 2 mg tablet 2 mg PO DAILYPRN PRN dairrhea 03/05/24
montelukast 10 mg tablet 10 mg PO HS 03/05/24
(Singulair)
omeprazole 40 mg capsule,delayed 40 mg PO QPM 03/05/24
release
simvastatin 10 mg tablet (Zocor) 10 mg PO HS 03/05/24
Review of Systems
-
History Source: Patient and Family
Constitutional: Reports Sleep Disturbance and Other (increased abdominal girth but slight wt loss )
EENT: Reports No Symptoms
Respiratory: Reports Trouble Breathing (per family at times )
Cardiac: Reports No Symptoms
Abdomen/GI: Reports Other (abdominal distention )
: Reports No Symptoms
Musculoskeletal: Reports No Symptoms
Skin: Reports No Symptoms
Neurological: Reports Weakness
Endocrine: Reports No Symptoms
Hematologic/Lymphatic: Reports No Symptoms
Vital Signs
Temp Pulse Resp BP Pulse Ox
98.4 F 98 18 105/65 94
03/06/24 07:13 03/05/24 23:43 03/05/24 23:43 03/06/24 07:11 03/06/24 07:13
Physical Exam
Exam
General: Well Developed, Well Nourished and No Apparent Distress
HEENT: Normocephalic, Anicteric and Other (right neck enlarged node )
Respiratory: Clear
Cardiac: Regular Rhythm and Peripheral Edema
GI: Soft, Non Distended and Distended (mild )
Musculoskeletal: No Clubbing and No Cyanosis
Skin: Warm and Dry
Neuro: Awake, Alert and AO x 3
Psych: Calm
Results
WBC 2.7 10^3/uL (4.8-10.8) L 03/06/24 05:45
Hgb 12.2 g/dL (13.0-18.0) L 03/06/24 05:45
Hct 37.5 % (39.0-52.0) L 03/06/24 05:45
MCV 85.6 fL (80.0-94.0) 03/06/24 05:45
Plt Count 48 10^3/uL (130-400) L 03/06/24 05:45
Sodium 139 mmol/L (135-145) 03/06/24 05:45
Potassium 4.0 mmol/L (3.5-5.1) 03/06/24 05:45
Chloride 108 mmol/L (98-107) H 03/06/24 05:45
Carbon Dioxide 20 mmol/L (22-30) L 03/06/24 05:45
BUN 14 mg/dl (9-20) 03/06/24 05:45
Creatinine 0.7 mg/dL (0.7-1.3) 03/06/24 05:45
Calcium 9.0 mg/dl (8.4-10.2) 03/06/24 05:45
Total Bilirubin 3.5 mg/dl (0.2-1.3) H 03/05/24 11:34
AST 52 U/L (17-59) 03/05/24 11:34
ALT 20 U/L (0-50) 03/05/24 11:34
Alkaline Phosphatase 283 U/L (38-126) H 03/05/24 11:34
Lipase 70 U/L (23-300) 03/05/24 11:34
Diagnostic Image Results:
03/05/24 CT Abd/Pel (IV only)-DH only
IMPRESSION: Small right pleural effusion. Atelectasis in the posterior right lower lung. Mild interstitial fibrosis in the inferior left lower lung. Linear densities within the left lower lung compatible with scarring and/or linear atelectasis.
Enlarged lymph nodes within the mediastinum, the right anterior pericardium, and within the abdomen. The degree of enlargement raises concern for neoplastic process such as leukemia or lymphoma.
Cirrhosis of the liver. Splenomegaly. Recannulized paraumbilical vein. Paraesophageal varices.
Moderate amount of ascites within the abdomen and pelvis.
Fatty infiltration of the pancreas.
Wall thickening diffusely involving the entire colon. This is suggestive of colitis. Portal colopathy is also a consideration.
Lytic lesions within the lower thoracic vertebrae appear to be related to Schmorl's nodes involving the endplates. Neoplastic lesions are a differential consideration, but felt to be less likely. Continued CT follow-up could be considered.
Bilateral hip prostheses, with resultant streak artifact.
03/05/24- US limited Trace volume of ascites not sufficient for percutaneous drainage.
11/18/23 US abdomen
Coarse hepatic parenchyma without service nodularity or increased echogenicity to suggest hepatic steatosis or cirrhosis.
Bilateral renal cortical atrophy. No nephrolithiasis or hydronephrosis.
Atherosclerotic, nonaneurysmal abdominal aorta.
Splenomegaly measuring up to 15.2 cm.
Targeted ultrasound of the midline abdominal wall demonstrated no abnormality. If there is concern for hernia, CT should be performed for further evaluation.
Prior GI Procedures:
EGD: none
Colonoscopy: last 2018 with hx polyps in past done in [place]
Assessment / Plan
-
Pt is an 88yo with hx cirrhosis(newly diagnosed but per family ? noted on prior records from [place]), ETOH abuse, GERD, hypothyroidism, hypercholesterolemia, hearing loss, basal cell with prior mohs surgery, hx PE(off anticoagulation as of 3 weeks
ago ), prior quentin, appe, b/l hip surgery, presents to ER with abdominal distention.Pt with US done in November with hepatic steatosis/cirrhosis, splenomegaly. Repeat limited US on admission with trace ascites unable to drain. Ct noted with small
effusion, interstitial fibrosis, enlarged nodes in mediastinum, anterior pericardium, abdomen with concern for neoplastic process. Also noted changes of cirrhosis, splenomegaly, recannulization paraumbilical vein, paraesophageal varices with
moderate ascites. Fatty pancreas, colitis possible colopathy, lytic spinal lesions schmorls nodules vs other neoplastic lesions. Labs on admission notable for 3.5, AST 52, ALT 20, alk phos 283, lipase 70, TSH 26 with T4 1.08. Procal 0.33, LDH 432,
hbg 12,1, WBC 3.1, but noted bandemia, platelets 52,000 and ammonia 25.
-cirrhosis with increased abdominal girth mild ascites without enough fluid to drain
-pancytopenia
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
-mild confusion with normal ammonia level
-concern for neoplastic process with enlarged nodes in mediastinum, anterior pericardium, abdomen and right neck node on exam, alk phos elevation
-fatty pancreas
-splenomegaly
-bandemia/mild procal elevation
-possible lytic spinal lesions
-ETOH dependency
-hypothyroidism
other med problems:
-GERD
-hyperlipidemia
-hypothyroidism
-PE off anticoagulation
-basal cell with prior mohs surgery
-hx appe, quentin, b/l hip surgery
PLAN:
Etiology of abdominal distention related to ascites with underlying cirrhosis/ ? 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
US noted with not enough fluid to tap
will check INR to calculate meld
reviewed with family diagnosis of cirrhosis
avoid ETOH and hepatotoxic medication
monitor stools as report loose stool over last day
Ammonia normal but monitor mental status for need to add low dose lactulose
eventual OP EGD for variceal screening
infectious work up per hospitalist- blood cx pending, UA neg
await oncology input t/c dedicated CT chest with some mediastinal nodes and right neck node enlarged on exam
cont management per medical team for elevated TSH
-
-
Thank you for consultation and allowing me to participate in the patient's care. Please call the front edger GI physician during the after hours with any questions or concerns.
--- NOTE | 2024-03-06 10:44 | CON.ONC ---
Impression
Impression
mediastinal/abdominal lymphadenopathy
abdominal bloating, CT suggesting colitis versus portal colopathy
alcohol abuse, cirrhosis, splenomegaly
h/o provoked PE after appendectomy w/ infection, completed finite course of Xarelto in summer 2023, has IVC filter
Plan
Plan
Await input from GI
Adenopathy is non-specific, flow cytometry from peripheral blood earlier this year showed no evidence for leukemia or lymphoma
Would hold off on further node evaluation (ie, biopsy), but if enough ascites for paracentesis, would send for cytology/flow
Pancytopenia related to cirrhosis/splenomegaly and toxic effects of EtOH on bone marrow
Patient History
History of Present Illness
Pedro is seen for oncology evaluation regarding abnormal CT imaging. He recently noted increasing abdominal distention, discomfort, and diarrhea for a few days. CT scan showed thickening of the colon suggestive of colitis. Portal colopathy is
also a possibility. There is enlarged nodes in the mediastinum and the abdomen. There is cirrhosis and splenomegaly. There is ascites.
IR attempt at paracentesis was aborted, not enough ascites to tap.
He has a h/o proved PE following appendectomy, which had been complicated by infection. He was seen by Dr. Tomlinson in our office in November, and she recommended stopping Xarelto as the clot had been provoked, and he's at bleeding risk w/ chronic
thrombocytopenia and varices. He complained of swollen abdomen at that time as well.
He had peripheral blood flow cytometry done in October 2023 (ordered by SHAD Aguilar, for unknown reason). It showed no abnormalities, no lymphoma or leukemia.
Past-Medical/Surgical History
PMH/PSH: as per the HPI, also alcohol abuse (at office visit in Nov 2023, noted 6+ drinks/day), panctyopenia attributed to cirrhosis/splenomegaly, also cholecystectomy, hernia, vein stripping.
SH: alcohol abuse (6 drinks/d), former smoker,
FH: N/C
Patient Medication
�Medication �Instructions �Recorded �Confirmed �Last Taken �Type
biotin 5 mg capsule 5 mg PO DAILY 03/05/24 03/05/24 03/05/24 History
cholecalciferol (vitamin D3) 25 25 mcg PO DAILY 03/05/24 03/05/24 03/05/24 History
mcg (1,000 unit) tablet (Vitamin
D3)
cyanocobalamin (vitamin B-12) 1,000 mcg PO DAILY 03/05/24 03/05/24 03/05/24 History
1,000 mcg tablet
famotidine 40 mg tablet (Pepcid) 40 mg PO HS 03/05/24 03/05/24 03/04/24 History
gabapentin 300 mg capsule 300 mg PO HS 03/05/24 03/05/24 03/04/24 History
glucosamine sulf dipot 1 cap PO DAILY 03/05/24 03/05/24 03/05/24 History
chlr,msm,chond 550 mg-C 30 mg-princess
1 mg capsule (Glucosamine
Chondroitin)
levothyroxine 88 mcg tablet 88 mcg PO DAILY 03/05/24 03/05/24 03/05/24 History
(Synthroid)
liothyronine 5 mcg tablet 10 mcg PO DAILY 03/05/24 03/05/24 03/05/24 History
loperamide 2 mg tablet 2 mg PO DAILYPRN PRN dairrhea 03/05/24 03/05/24 03/05/24 History
montelukast 10 mg tablet 10 mg PO HS 03/05/24 03/05/24 03/04/24 History
(Singulair)
omeprazole 40 mg capsule,delayed 40 mg PO QPM 03/05/24 03/05/24 03/04/24 History
release
simvastatin 10 mg tablet (Zocor) 10 mg PO HS 03/05/24 03/05/24 03/04/24 History
Active Medications
Generic Name Dose Route Start Last Admin
Trade Name Freq PRN Reason Stop Dose Admin
Atorvastatin Calcium 10 mg 03/06/24 22:00
Atorvastatin (Lipitor) 10 Mg Tablet PO 04/03/24 21:59
HS TOMASA
Cholecalciferol 25 mcg 03/06/24 08:00 03/06/24 09:25
Cholecalciferol (Vitamin D3) 25 Mcg Tablet (1,000 Units) PO 04/03/24 07:59 25 mcg
DAILY TOMASA Administration
Cyanocobalamin 1,000 mcg 03/06/24 08:00 03/06/24 09:25
Cyanocobalamin 1,000 Mcg Tablet PO 04/03/24 07:59 1,000 mcg
DAILY TOMASA Administration
Famotidine 40 mg 03/05/24 22:04 03/05/24 22:23
Famotidine 40 Mg Tablet PO 04/02/24 22:03 40 mg
HS TOMASA Administration
Gabapentin 300 mg 03/05/24 22:04 03/05/24 22:23
Gabapentin 300 Mg Capsule PO 04/02/24 22:03 300 mg
HS TOMASA Administration
Levothyroxine Sodium 125 mcg 03/07/24 06:00
Levothyroxine 125 Mcg Tablet PO 04/04/24 05:59
DAILY @ 0600 TOMASA
Montelukast Sodium 10 mg 03/05/24 22:04 03/05/24 22:23
Montelukast Sodium 10 Mg Tablet PO 04/02/24 22:03 10 mg
HS TOMASA Administration
Pantoprazole Sodium 40 mg 03/06/24 18:00
Pantoprazole 40 Mg Delayed Release Tablet PO 04/03/24 17:59
QPM TOMASA
Sodium Chloride 0 flush 03/05/24 22:00
Sodium Chloride 0.9% (Flush) Syringe IV 04/02/24 21:59
PER PROTOCOL TOMASA
Review of Systems
-
History Source: Patient, Family and Records
All Other Systems: Not reviewed unless documented
Physical Exam
-
General: Well Developed, Well Nourished, No Apparent Distress, Comfortable and Conversant
HEENT: Negative Jaundice
Cardiology: Normal Sinus Rhythm
GI: Soft, Normal Bowel Sounds, Distended and Fluid Wave
Extremities: No C/C/E; Negative Phlebitic Signs
Neurology: Non Focal
Skin: Warm and Dry
Hematologic / Lymphatic: No Lymphadenopathy
Psych: Calm
Labs
Lab Results
WBC 2.7 10^3/uL (4.8-10.8) L 03/06/24 05:45
RBC 4.38 10^6/uL (4.70-6.10) L 03/06/24 05:45
Hgb 12.2 g/dL (13.0-18.0) L 03/06/24 05:45
Hct 37.5 % (39.0-52.0) L 03/06/24 05:45
MCV 85.6 fL (80.0-94.0) 03/06/24 05:45
MCH 27.9 pg (27.0-31.0) 03/06/24 05:45
MCHC 32.5 g/dL (33.0-37.0) L 03/06/24 05:45
RDW 18.4 % (11.5-14.5) H 03/06/24 05:45
Plt Count 48 10^3/uL (130-400) L 03/06/24 05:45
MPV 10.2 fL (7.4-10.4) 03/06/24 05:45
Creatinine 0.7 mg/dL (0.7-1.3) 03/06/24 05:45
Vital Signs
Vital Signs
Temp Pulse Resp BP Pulse Ox
98.4 F 98 18 105/65 94
03/06/24 07:13 03/05/24 23:43 03/05/24 23:43 03/06/24 07:11 03/06/24 07:13
[2024-03-06] MEDS: PROTONIX 40 MG PO (17:23)
[2024-03-06] MEDS: SINGULAIR 10 MG PO (22:14)
[2024-03-06] MEDS: PEPCID 40 MG PO (22:14)
[2024-03-06] MEDS: NEURONTIN 300 MG PO (22:14)
[2024-03-06] MEDS: LIPITOR 10 MG PO (22:15)
--- NOTE | 2024-03-07 03:57 | DOWNTIME ---
There was a [employer] Client School Clerk Downtime on 03/07/2024 from 0100 to 03/07/2024 at 0350. Downtime documentation of patient's care, including medication administrations, has been reconciled in the electronic record per guidelines. Refer to the
patient's paper chart under the miscellaneous tab to see printed paper medication records and downtime forms.
[2024-03-07] MEDS: SYNTHROID 125 MCG PO (05:22)
[2024-03-07 07:31] VITALS: BP 94/66
[2024-03-07] MEDS: VITAMIN D3 (cholecalciferol) 25 MCG PO (08:27)
[2024-03-07] MEDS: VITAMIN B-12 1000 MCG PO (08:27)
[2024-03-07 08:33] LABS: PT 16.7 Sec (11.4-14.6)
[2024-03-07 08:38] LABS: Hematocrit 38.5 % (39.0-52.0); Hemoglobin 12.6 g/dL (13.0-18.0); Mean Corp Hgb Conc. 32.7 g/dL (33.0-37.0); Mean Corpuscular Volume 85.6 fL (80.0-94.0); Platelet Count 44 10^3/uL (130-400); Red Cell Dist. Width 18.6 % (11.5-14.5); White Blood Cell Count 2.8 10^3/uL (4.8-10.8)
--- NOTE | 2024-03-07 09:09 | PN.CDI ---
CDI
- -
CDI:
Physician Documentation Request
Admit Date: 03/05/24 19:50
Dear Doctor Mane,
Please review the following and provide your response in the progress notes.
Clinical Indicators:
PN, 03/06
#...-possible colitis on CT
#...-bandemia noted
#...-cont empiric Zosyn
Please provide additional specificity regarding the type of colitis:
Infectious
�Bacterial
Non-infectious
-Indicate type such as toxic, allergic, dietetic, eosinophilic, etc.
Other (please specify)
Use of terms such as suspected, likely, concern for, or probable (associated with a specific diagnosis that is being evaluated, monitored, or treated as if it exists) are acceptable and can be coded in the inpatient setting, when documented at the
time of discharge.
Thank you,
Krysta Constantino RN BSN CDS
CDI Specialist
please contact via tiger text
Please use your independent medical judgment in providing your response.
[2024-03-07 09:17] LABS: Blood Urea Nitrogen 11 mg/dl (9-20); Calcium 9.5 mg/dl (8.4-10.2); Carbon Dioxide 21 mmol/L (22-30); Chloride 107 mmol/L (98-107); Estimated Creatinine Clearance 80 ml/min; Glucose 89 mg/dl (70-99); Iron 51 ug/dl (49-181); Potassium 3.9 mmol/L (3.5-5.1); Sodium 139 mmol/L (135-145); eGFR > 60.00
[2024-03-07 09:26] LABS: Percent Saturation 17 % (20-50); Total Iron Binding Capacity 297 ug/dl (261-462)
--- NOTE | 2024-03-07 11:25 | CM ---
information manager reviewed patient's chart and met with patient and patient lives with spouse in a 2 story home, patient has a 1st floor set up, patient's spouse is w/c level in home. Patient is independent with adl's and ambulation. No dme, Patient and
spouse report that they moved to this area to be closer to family, patient's daughter lives one mile away.
PCP: Dr. Childs
Pharmacy [facility] in [place]
Plan; Home with spouse when stable, no needs.
[2024-03-07 11:43] LABS: Ferritin 43.8 ng/ml (17.9-464.0)
--- NOTE | 2024-03-07 11:56 | W.PN.HOSP.TC ---
Addendum entered and electronically signed by Brandon Gilliam MD 03/07/24 13:09:
Total time spent on d/c = 34 min. This included today's physical exam, progress note, review of laboratory and diagnostic data, preparation of discharge documents and prescriptions, and discussions about the pt's hospital course and discharge plan
with the patient and other medical review coordinator involved in the patient's care.
Original Note:
Today's Communication/Plan
-
d/c
Assessment / Plan
Assessment / Plan
Gen: NAD, Awake and alert
Eyes: EOMI, PERRLA, no scleral icterus.
Neck: supple.
CV: remains RRR, +S1/S2, no m/r/g.
Resp: remains CTAB, no rales, wheezes, or rhonchi.
Abd: remains +BS, soft, NT, moderate distention with ascites
Skin: No rashes.
Neuro: CN 2-12 intact, non-focal.
Psych: Normal mood and affect.
03/05/24 19:19 Blood/Venous Blood Culture - Preliminary
No Growth in 24 hours- Final report to follow
03/05/24 19:19 Blood/Venous Blood Culture - Preliminary
No Growth in 24 hours- Final report to follow
CT A/P: Small right pleural effusion. Atelectasis in the posterior right lower lung. Mild interstitial fibrosis in the inferior left lower lung. Linear densities within the left lower lung compatible with scarring and/or linear atelectasis. Enlarged
lymph nodes within the mediastinum, the right anterior pericardium, and within the abdomen. The degree of enlargement raises concern for neoplastic process such as leukemia or lymphoma. Cirrhosis of the liver. Splenomegaly. Recannulized
paraumbilical vein. Paraesophageal varices. Moderate amount of ascites within the abdomen and pelvis. Fatty infiltration of the pancreas. Wall thickening diffusely involving the entire colon. This is suggestive of colitis. Portal colopathy is also a
consideration. Lytic lesions within the lower thoracic vertebrae appear to be related to Schmorl's nodes involving the endplates. Neoplastic lesions are a differential consideration, but felt to be less likely. Continued CT follow-up could be
considered. Bilateral hip prostheses, with resultant streak artifact.
Abd U/S: Trace volume of ascites not sufficient for percutaneous drainage.
Acute metabolic encephalopathy:
-possible colitis on CT
-bandemia noted on admission, diff today pending
-admission documentation stated pt would be on empiric Zosyn but it was not ordered
-afebrile, hemodynamically stable in the setting of known cirrhosis
-BCxs NGTD
-Acute metabolic encephalopathy could also be related to uncontrolled hypothyroidism, Levoxyl increased
-NH3 25, no hepatic encephalopathy
-procal noted but is not indicated and has no meaning in this case
-I specifically discussed the need for antibiotics with Dr. Orozco over the phone. He feels that the findings of possible colitis on CT scan of the abdomen pelvis actually represents portal colopathy and not acute infection. He does not feel the
patient needs antibiotics at this time. Bandemia of 5% alone does not warrant antibiotics and, at this juncture, the risk of antibiotic therapy outweighs any benefit.
Concern for neoplastic process, pancytopenia:
-Lytic lesions within the lower thoracic vertebrae
-Elevated AP
-ONC following
-No indication for further node evaluation (biopsy). Note that adenopathy is nonspecific. Patient had flow cytometry from peripheral blood previously that was without evidence for leukemia or lymphoma
-Pancytopenia related to alcohol use and cirrhosis/splenomegaly
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
-MSAS protocol
-GI follwing
-as per IR not enough ascites to drain
Other problems:
Hyperlipidemia: Cont statin
Hypothyroidism: TSH 26, levothyroxine increased to 125mcg and liothyronine stopped
GERD: cont famotidine and omeprazole
h/o DVT/PE: stopped Xarelto 3 weeks MMA FIGHTER (finite course). h/o IVC filter
FULL/SCDs
The patient's and daughter were updated at bedside. The patient is medically cleared for discharge.
Total time spent on d/c = 33 min. This included today's physical exam, progress note, review of laboratory and diagnostic data, preparation of discharge documents and prescriptions, and discussions about the pt's hospital course and discharge plan
with the patient and other medical review coordinator involved in the patient's care.
Anticipated Discharge: Today
Subjective/Interval History
-
Date of Service: March 07, 2024
'I feel better than when I came in.'
Objective Data
-
Labs:
Laboratory Results
03/07/24
07:50
WBC 2.8 L
Hgb 12.6 L
Hct 38.5 L
Plt Count 44 L
PT 16.7 H
INR 1.30
Sodium 139
Potassium 3.9
Chloride 107
Carbon Dioxide 21 L
BUN 11
Creatinine 0.7
Glucose 89
Calcium 9.5
Vital Signs:
Vital Signs
Temp Pulse Resp BP Pulse Ox
98.7 F 91 20 94/66 96
03/07/24 07:31 03/07/24 07:31 03/07/24 07:31 03/07/24 07:31 03/07/24 07:31
I&O
03/06/24 03/07/24 03/08/24
06:59 06:59 06:59
Intake Total 1200 / 1200
Output Total 200 / 200
Balance -200 / -200 1200 / 1200
--- NOTE | 2024-03-07 11:58 | W.PN.GI.CBS2 ---
Today's Communication / Plan
-
Not enough ascites to tap
Quit EtOH 3.5 weeks ago. Told him abstinence is critical
MELD 3.0 = 14
Has f/u appt with Dr Preston in May. Told daughter she could call to move up
Not much to add from GI standpoint. Will sign off
Assessment / Plan
-
Pt is an 88yo with hx cirrhosis(newly diagnosed but per family ? noted on prior records from [place]), ETOH abuse, GERD, hypothyroidism, hypercholesterolemia, hearing loss, basal cell with prior mohs surgery, hx PE(off anticoagulation as of 3 weeks
ago ), prior quentin, appe, b/l hip surgery, presents to ER with abdominal distention.Pt with US done in November with hepatic steatosis/cirrhosis, splenomegaly. Repeat limited US on admission with trace ascites unable to drain. Ct noted with small
effusion, interstitial fibrosis, enlarged nodes in mediastinum, anterior pericardium, abdomen with concern for neoplastic process. Also noted changes of cirrhosis, splenomegaly, recannulization paraumbilical vein, paraesophageal varices with
moderate ascites. Fatty pancreas, colitis possible colopathy, lytic spinal lesions schmorls nodules vs other neoplastic lesions. Labs on admission notable for 3.5, AST 52, ALT 20, alk phos 283, lipase 70, TSH 26 with T4 1.08. Procal 0.33, LDH 432,
hbg 12,1, WBC 3.1, but noted bandemia, platelets 52,000 and ammonia 25.
-cirrhosis with increased abdominal girth mild ascites without enough fluid to drain
-pancytopenia
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
-mild confusion with normal ammonia level
-concern for neoplastic process with enlarged nodes in mediastinum, anterior pericardium, abdomen and right neck node on exam, alk phos elevation
-fatty pancreas
-splenomegaly
-bandemia/mild procal elevation
-possible lytic spinal lesions
-ETOH dependency
-hypothyroidism
other med problems:
-GERD
-hyperlipidemia
-hypothyroidism
-PE off anticoagulation
-basal cell with prior mohs surgery
-hx appe, quentin, b/l hip surgery
Subjective
Subjective
Date of Service: March 07, 2024
No complaints
Objective
Data Reviewed
Laboratory Data:
Laboratory Results
03/07/24 07:50
03/07/24 07:50
Laboratory Results
PT 16.7 Sec (11.4-14.6) H 03/07/24 07:50
INR 1.30 03/07/24 07:50
Total Bilirubin 3.5 mg/dl (0.2-1.3) H 03/05/24 11:34
AST 52 U/L (17-59) 03/05/24 11:34
ALT 20 U/L (0-50) 03/05/24 11:34
Alkaline Phosphatase 283 U/L (38-126) H 03/05/24 11:34
Lipase 70 U/L (23-300) 03/05/24 11:34
Vital Signs and I&O:
Vital Signs
Temp Pulse Resp BP Pulse Ox
98.7 F 91 20 94/66 96
03/07/24 07:31 03/07/24 07:31 03/07/24 07:31 03/07/24 07:31 03/07/24 07:31
I&O
03/06/24 03/07/24 03/08/24
06:59 06:59 06:59
Intake Total 1200 / 1200
Output Total 200 / 200
Balance -200 / -200 1200 / 1200
Physical Exam
Physical Exam
GI: Soft, Non Distended (less distended than yesterday) and Non Tender
[2024-03-07 12:29] LABS: Urine Albumin Trace (Neg - Trace); Urine Bilirubin 2+ (Negative); Urine Character Clear (Clear); Urine Color Amber; Urine Glucose Negative (Negative); Urine Ketone 1+ (Negative); Urine Leukocyte Trace (Negative); Urine Nitrite Positive (Negative); Urine Occult Blood Negative (Negative); Urine Specific Gravity 1.025 (<1.030); Urine Urobilinogen 2+ (Neg - 1+)
[2024-03-07 12:39] LABS: Urine Red Blood Cell 0-2 /HPF (0-2); Urine Squamous Cell 0-2 /LPF (Few)
[2024-03-07 12:40] LABS: Urine Bacteria Moderate (Negative); Urine Calcium Oxalate Crystals Present
[2024-03-07 14:00] VITALS: BP 112/65
--- NOTE | 2024-03-08 13:15 | W.DCSUMMARY ---
Discharge Summary
Discharge Data
Date of Admission: 03/05/24
Date of Discharge: 03/07/24
-
Pending Results: No
Hospital Course
Primary diagnoses:
Acute metabolic encephalopathy
Pancytopenia due to cirrhosis and alcohol use
Hypothyroidism
Secondary diagnoses:
Hyperlipidemia
Gastroesophageal reflux disease
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
Consultants:
Gastroenterology
Hematology-oncology
Imaging:
CT A/P: Small right pleural effusion. Atelectasis in the posterior right lower lung. Mild interstitial fibrosis in the inferior left lower lung. Linear densities within the left lower lung compatible with scarring and/or linear atelectasis. Enlarged
lymph nodes within the mediastinum, the right anterior pericardium, and within the abdomen. The degree of enlargement raises concern for neoplastic process such as leukemia or lymphoma. Cirrhosis of the liver. Splenomegaly. Recannulized
paraumbilical vein. Paraesophageal varices. Moderate amount of ascites within the abdomen and pelvis. Fatty infiltration of the pancreas. Wall thickening diffusely involving the entire colon. This is suggestive of colitis. Portal colopathy is also a
consideration. Lytic lesions within the lower thoracic vertebrae appear to be related to Schmorl's nodes involving the endplates. Neoplastic lesions are a differential consideration, but felt to be less likely. Continued CT follow-up could be
considered. Bilateral hip prostheses, with resultant streak artifact.
Abd U/S: Trace volume of ascites not sufficient for percutaneous drainage.
88-year-old male who presented with chief complaint of abdominal pain as outlined in the H&P done on admission. Hospital course per problem list:
Acute metabolic encephalopathy: The patient was afebrile and hemodynamically stable while hospitalized. Ammonia was 25 and therefore the patient did not have hepatic encephalopathy. Patient's blood cultures were no growth to date. On admission,
due to bandemia, it was noted the patient would be started on empiric Zosyn but this was not ordered. After discussion with gastroenterology regarding the findings of possible colitis on CT scan of the abdomen pelvis it was felt that these
findings actually represented portal colopathy and not acute infection. Dr. Orozco did not feel the patient needed antibiotics at this time. Bandemia of 5% alone did not warrant antibiotics and it was felt that the risk of antibiotic therapy
outweighed any benefit. The patient had an abdominal ultrasound which did not show enough ascites for paracentesis.
Hypothyroidism: Patient's TSH was 26. His levothyroxine was increased to 125mcg and his liothyronine was stopped.
Concern for neoplastic process, pancytopenia: The patient had a lytic lesions within the lower thoracic spine on imaging above. He had an elevated alkaline phosphatase. He was seen in consultation by oncology. There was no indication for further
node evaluation (biopsy). It was noted that the adenopathy was nonspecific. The patient had flow cytometry from peripheral blood previously that was without evidence for leukemia or lymphoma. The patient's pancytopenia was related to alcohol use
and cirrhosis/splenomegaly.
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 He had no evidence of alcohol withdrawal while hospitalized.
Discharge Plan
-
Patient Disposition: Home (Routine Discharge)
Discharge Diagnosis/Procedures: Acute metabolic encephalopathy, pancytopenia due to cirrhosis and alcohol use, hypothyroidism
Condition: Good
Diet: No restrictions
Activity: As tolerated
Driving Restrictions: Not until seen by your Dr
Specialty Instructions: Weigh Daily- Call MD for wt gain/loss 3 lbs overnight/5 lbs in 1 week
Referrals:
Shola Perston MD [Active] -
Dg Childs DO [Family Provider] - in less than 1 week
Prescriptions:
New
levothyroxine 125 mcg Tablet
125 mcg PO DAILY @ 0600 Qty: 30 0RF
Continued
biotin 5 mg Capsule
5 mg PO DAILY
famotidine [Pepcid] 40 mg Tablet
40 mg PO HS
simvastatin [Zocor] 10 mg Tablet
10 mg PO HS
cyanocobalamin (vitamin B-12) 1,000 mcg Tablet
1,000 mcg PO DAILY
omeprazole 40 mg Capsule,Delayed Release(Dr/Ec)
40 mg PO QPM
gabapentin 300 mg Capsule
300 mg PO HS
montelukast [Singulair] 10 mg Tablet
10 mg PO HS
cholecalciferol (vitamin D3) [Vitamin D3] 25 mcg (1,000 unit) Tablet
25 mcg PO DAILY
Glucosamine Chondroitin 550-30-1 mg Capsule
1 cap PO DAILY
loperamide 2 mg Tablet
2 mg PO DAILYPRN PRN (Reason: dairrhea)
Discontinued
liothyronine 5 mcg Tablet
10 mcg PO DAILY
levothyroxine [Synthroid] 88 mcg Tablet
88 mcg PO DAILY
Discharge Orders:
Discharge Patient (As Directed); Ordered 03/07/24
Ordered By: Brandon Gilliam
Discharge Date and Time
Discharge Date/Time: 03/07/24 15:17
Print Language: MALAY
[2024-03-08 20:27] LABS: Hepatitis B Surface Antigen Negative (Negative)
[2024-03-08 20:38] LABS: Hepatitis B Core Ab, IgM Negative (Negative)
[2024-03-08 20:46] LABS: Hepatitis B Core Ab, Total Negative (Negative); Hepatitis B Surface Antibody Negative; Hepatitis C Antibody Negative (Negative)
[2024-03-09 00:58] LABS: ANA, IgG Reflex to HEp-2 None Detected (None Detected)
[2024-03-09 01:31] LABS: Hepatitis A Antibody, Total Negative (Negative)
[2024-03-09 02:00] LABS: Mitochondrial M2 Ab, IgG 2.8 Units (0.0-24.9)
[2024-03-09 11:25] LABS: Alpha-1-Antitrypsin 172 mg/dL (90-200)
[2024-03-09 13:12] LABS: AFP Male/Tumor Marker < 0.800 ng/ml
[2024-03-09 20:10] LABS: LKM-1 Ab (IgG) 0.6 U (0.0-24.9)
== END 2024-03-07 15:17 | disposition home or self-care (01) | DRG 643 ==
LOC: 4 WEST ACU 19:50
PROVIDERS: Nurse Practitioner Adult Health; Nurse Practitioner Family; Registered Nurse; ADMITTING PHYSICIAN Internal Medicine; ATTENDING PHYSICIAN Internal Medicine; CONSULT PHYSICIAN Specialist; EMERGENCY PHYSICIAN Emergency Medicine; FAMILY PHYSICIAN Internal Medicine; OTHER PHYSICIAN Internal Medicine Hematology & Oncology
DX: E03.9 Hypothyroidism, unspecified (principal); G93.41 Metabolic encephalopathy; D61.818 Other pancytopenia; Z87.891 Personal history of nicotine dependence; K70.31 Alcoholic cirrhosis of liver with ascites; E78.00 Pure hypercholesterolemia, unspecified; K21.9 Gastro-esophageal reflux disease without esophagitis; Z86.711 Personal history of pulmonary embolism; Z86.718 Personal history of other venous thrombosis and embolism
CPT/HCPCS: 74177; 76705; 80048; 80053; 81003; 81015; 82103; 82105; 82140; 82728; 83516; 83540; 83550; 83615; 83690; 84145; 84439; 84443; 85025; 85027; 85610; 86038; 86376; 86381; 86704; 86705; 86706; 86708; 86709; 86803; 87040; 87086; 87340; 99285; Q9967

== ENCOUNTER 2024-03-12 15:29 | Inpatient (IN) | payer OTHER, SELFPAY ==
[2024-03-12] VITALS (11 sets, daily range): BP systolic 94–120; BP diastolic 51–69; BMI 24.0
[2024-03-12] MEDS: NSS 1000 IV (10:00)
[2024-03-12 10:18] LABS: INR 1.61; PT 19.3 Sec (11.4-14.6)
[2024-03-12 10:19] LABS: APTT 35.2 Sec (23.4-35.0); Hematocrit 42.5 % (39.0-52.0); Hemoglobin 14.2 g/dL (13.0-18.0); Mean Corp Hgb Conc. 33.4 g/dL (33.0-37.0); Mean Corpuscular Hgb 28.1 pg (27.0-31.0); Red Blood Cell Count 5.06 10^6/uL (4.70-6.10); Red Cell Dist. Width 20.5 % (11.5-14.5); White Blood Cell Count 5.1 10^3/uL (4.8-10.8)
[2024-03-12 10:23] LABS: Blood Urea Nitrogen 22 mg/dl (9-20); Calcium 10.4 mg/dl (8.4-10.2); Carbon Dioxide 16 mmol/L (22-30); Chloride 105 mmol/L (98-107); Glucose 92 mg/dl (70-99); Sodium 137 mmol/L (135-145); eGFR > 60.00
[2024-03-12 10:51] LABS: Ammonia < 9 umol/L (9-30)
--- NOTE | 2024-03-12 11:03 | ED.GENMED ---
History of Present Illness
General
Chief Complaint: Abdominal Symptoms
Time Seen by Provider: 03/12/24 09:47
History of Present Illness
History of Present Illness:
88-year-old male presents the emergency department with family for evaluation of confusion and weakness. For the past 2 days has not been eating or drinking much at all. Family had a difficult time understanding his speech today secondary to
profound dry mouth. On arrival the patient is disoriented to place and time as well as events. Recent admitted to this hospital with newly diagnosed cirrhosis with hepatic encephalopathy. Per has been compliant with meds up until the past 2
days.
Past History
Past History
ED Past Medical History: GERD, Hypercholesterolemia, Hypothyroidism, Other (Alcoholic cirrhosis) and Other (History of DVT/PE remote stopped Xarelto 3 weeks ago)
ED Past Surgical History: Appendectomy, Cholecystectomy and Orthopedic
Social History
Tobacco: Non-smoker
Alcohol: Chronic alcoholic
Personal:
Living: with family (Recently moved here from [place], daughter is in the process of getting them settled and eventually moving in with her )
Employment: Retired
Review of Systems
Review of Systems
Allergies reviewed?: Yes
All Other Systems: ROS reviewed and negative except as documented in HPI and ROS
Phy Exam
Physical Exam
Physical Exam:
GEN: Disheveled, chronically ill-appearing
Eyes: PERRLA, EOMs intact, no scleral icterus
HENT: NCAT, oral mucosa dry
Lungs: CTAB, no wheezes, rales, rhonchi, normal chest wall excursion
Cardiac: RRR, no M/R/G, no peripheral edema. Radial pulses 2+ bilat
Abdomen: Soft, mildly distended, grossly nontender, limited bedside ultrasound shows very small quantity of ascites primarily inferiorly
Neuro: AO x 3
MSK: No gross deformity or ecchymosis. No edema. No digital clubbing
Skin: No rashes, petechiae. Normal color, no pallor or jaundice.
Psych: Calm, cooperative, proper hygiene
Course
Orders/Labs/Results
Orders:
Orders
03/12/24 09:46
Basic Metabolic Panel Urgent
Complete Blood Count/With Diff Urgent
Manual Differential Urgent
PT/INR [Prothrombin Time] Urgent
Is patient on Coumadin/Warfarin?: No
Comment: xarelto
PTT Urgent
03/12/24 09:57
0.9% Sodium Chloride 1000 ml [Nss] 1,000 ml IV BOLUS
03/12/24 10:31
Ammonia Routine
03/12/24 11:03
CT Head W/o Iv Contrast Urgent
Comment:
Reason For Exam: AMS
03/12/24 12:15
Urinalysis Reflex To Culture Urgent
Date Specimen was Collected: 03/12/24
Time Specimen was Collected: 12:11
Urine Microscopic Reflex Cult Urgent
Urine Culture Urgent
JAQUELINE Source: U
Specimen Description:
Date Specimen was Collected: 03/12/24
Time Specimen was Collected: 12:11
03/12/24 14:22
LFT [[id number]] Urgent
03/12/24 14:58
Admit/Transfer Patient As Directed
Co-Sign Provider:
Level of Care: Inpatient admission
Assign to:: Medical/Surgical
Physician / Group: rg
Diagnosis: metabolic encephalopathy
Reason for Hospitalization: metabolic encephalopathy
Expected length of stay greater than two midnights?: Yes
ELOS- Estimated Length of Stay in days: 3
I certify the patient meets the requirements for IP care: Yes
03/12/24 14:59
PRN Pain Medication Management As Directed
May give lesser potent ordered pain med per pt: Yes
preference::
Protocol:: Medication orders for pain may be administered in a
manner that supports deferring to patient preference
when the pt is:
- Requesting an ordered lesser potent pain medication.
Least to most potent pain medications are defined
as: acetaminophen < NSAID < tramadol < opioids
(morphine, oxycodone, hydromorphone).
- Requesting a lesser dose of the same medication IF
ORDERED.
- Requesting a less intrusive route of administration
if both routes are prescribed by the provider (PO <
IV).
03/12/24 15:00
Code Status As Directed
Resuscitation Status: Full Code
Abnormal Lab Results
03/12/24 03/12/24 03/12/24
09:46 10:31 12:15
RDW 20.5 H %
(11.5-14.5)
Plt Count 36 L 10^3/uL
(130-400)
Band Neutrophils 11 H D %
(0-3)
Lymphocytes (Manual) 16 L %
(20-51)
Monocytes (Manual) 20 H %
(2-9)
PT 19.3 H Sec
(11.4-14.6)
APTT 35.2 H Sec
(23.4-35.0)
Carbon Dioxide 16 L mmol/L
(22-30)
BUN 22 H mg/dl
(9-20)
Calcium 10.4 H mg/dl
(8.4-10.2)
Total Bilirubin
Direct Bilirubin
AST
Alkaline Phosphatase
Ammonia < 9 L umol/L
(9-30)
Total Protein
Urine Ketones 2+ A
(Negative)
Urine Nitrite (Reflex) Positive A
(Negative)
Urine Bilirubin 2+ A
(Negative)
Urine Urobilinogen 2+ A
(Neg - 1+)
Leukocyte Esterase Rfl Trace A
(Negative)
03/12/24
14:22
RDW
Plt Count
Band Neutrophils
Lymphocytes (Manual)
Monocytes (Manual)
PT
APTT
Carbon Dioxide
BUN
Calcium
Total Bilirubin 4.0 H mg/dl
(0.2-1.3)
Direct Bilirubin 1.4 H mg/dl
(0.0-0.4)
AST 78 H U/L
(17-59)
Alkaline Phosphatase 234 H U/L
(38-126)
Ammonia
Total Protein 5.6 L g/dl
(6.3-8.2)
Urine Ketones
Urine Nitrite (Reflex)
Urine Bilirubin
Urine Urobilinogen
Leukocyte Esterase Rfl
03/12/24 09:46
03/12/24 09:46
Vital Signs
Initial and Last Documented VS:
Initial Vital Signs
Pulse Resp Pulse Ox
95 29 95
03/12/24 09:31 03/12/24 09:31 03/12/24 09:31
Last Documented Vital Signs
Temp Pulse Resp BP Pulse Ox
98.1 F 94 15 116/69 95
03/12/24 09:32 03/12/24 14:30 03/12/24 14:30 03/12/24 14:01 03/12/24 14:30
MDM/Problems Addressed
MDM/Problems Addressed:
88-year-old male presents with confusion and fatigue, he appears profoundly deconditioned and dehydrated which is likely the cause of his acute confusion as his ammonia levels are normal and CT is negative. Will admit to the hospitalist service for
further management
*Critical Care Note
Total Time (30-74mins, 75-104mins- exclusive of procedures): Not Applicable
ED Attending Note
-
Portions of this chart may have been created with voice recognition software.� Occasional wrong word or��sound alike� substitutions may have occurred due to the inherent limitations of voice recognition software.
Discharge Plan
Departure
Patient Disposition: Admit
Date of Disposition: 03/12/24
Time of Disposition: 14:08
Admit to: Med/Surg
Presentation/result/management discussed w/ accepting MD/DO: Hospitalist
Patient with high blood pressure during this ER visit?: No
Discharge Problem:
Acute encephalopathy
Prescriptions:
No Action
biotin 5 mg Capsule
5 mg PO DAILY
famotidine [Pepcid] 40 mg Tablet
40 mg PO HS
simvastatin [Zocor] 10 mg Tablet
10 mg PO HS
cyanocobalamin (vitamin B-12) 1,000 mcg Tablet
1,000 mcg PO DAILY
omeprazole 40 mg Capsule,Delayed Release(Dr/Ec)
40 mg PO QPM
gabapentin 300 mg Capsule
300 mg PO HS
montelukast [Singulair] 10 mg Tablet
10 mg PO HS
cholecalciferol (vitamin D3) [Vitamin D3] 25 mcg (1,000 unit) Tablet
25 mcg PO DAILY
Glucosamine Chondroitin 550-30-1 mg Capsule
1 cap PO DAILY
loperamide 2 mg Tablet
2 mg PO DAILYPRN PRN (Reason: dairrhea)
levothyroxine 125 mcg tablet
125 mcg PO DAILY
Referrals:
Dg Childs DO [Family Provider] -
Interventions
Interventions:
*Risk Screen - Suicide Last Done: 03/12/24 09:33
*General Assessment Last Done: 03/12/24 09:32
*Neglect/Abuse Screening Last Done: 03/12/24 09:33
*ED COVID-19 Vaccine History Last Done: 03/12/24 09:33
MP-Iggvfk-Mczdwawdsz Assessment Last Done: 03/12/24 09:34
Discharge Date and Time
Print Language: MALDIVIAN
[2024-03-12 12:28] LABS: Urine Albumin Trace (Neg - Trace); Urine Bilirubin 2+ (Negative); Urine Character Clear (Clear); Urine Color Amber; Urine Glucose Negative (Negative); Urine Ketone 2+ (Negative); Urine Leukocyte Trace (Negative); Urine Nitrite Positive (Negative); Urine Occult Blood Negative (Negative); Urine Specific Gravity 1.025 (<1.030); Urine Urobilinogen 2+ (Neg - 1+)
[2024-03-12 13:03] LABS: Platelet Count 36 10^3/uL (130-400)
[2024-03-12 13:06] LABS: Absolute Neutrophils -Man Diff 2.9 10^3/uL (1.4-6.5); Band Neutrophils 11 % (0-3); Segmented Neutrophils 46 % (42-75)
[2024-03-12 13:07] LABS: Lymphocytes 16 % (20-51); Metamyelocytes 3 % (-); Monocytes 20 % (2-9); Myelocytes 4 % (-); Normal RBC Morphology No; Platelets Checked YES
[2024-03-12 13:08] LABS: Nucleated Red Blood Cells 1 (-)
[2024-03-12 13:10] LABS: Polychromasia Slight; Target Cells FEW
[2024-03-12 13:11] LABS: Ovalocytes FEW
[2024-03-12 13:12] LABS: Acanthocytes FEW; Total Cells Counted 100
[2024-03-12 13:24] LABS: Urine Mucus Many
[2024-03-12 13:25] LABS: Urine Squamous Cell 26-30 /LPF (Few)
[2024-03-12 13:26] LABS: Urine Amorphous Seen; Urine Hyaline Cast >15 /LPF (0-2)
[2024-03-12 13:28] LABS: Urine Calcium Oxalate Crystals Seen
[2024-03-12 13:29] LABS: Urine Urothelial Cell >30 /LPF (FEW)
[2024-03-12 13:33] LABS: Urine Red Blood Cell 0-2 /HPF (0-2)
[2024-03-12 13:34] LABS: Urine White Cell 0-2 /HPF (0-5)
--- NOTE | 2024-03-12 14:20 | HPS.HSE ---
Family Physician
-
Family Physician: Dg Childs
Chief Complaint
-
confusion
History of Present Illness
88-year-old male with past medical history for GERD, hyperlipidemia, hypothyroidism, alcoholic cirrhosis, DVT, PE presented to us with generalized weakness and confusion. Since the discharge from hospital last week, patient was noted to have
worsening confusion and poor oral intake. He sleeps most of the time and was not eating at all for past 2 days. Patient stated some abdominal discomfort distention. Denied nausea vomiting diarrhea. Patient denied any headache, dizziness,
syncope. Patient denied chest pain or short of breath. Patient denied dysuria hematuria.
Admitting for further management
Medical History
Past Medical History
Past Medical History: Reports Other
Additional Past Medical History:
GERD
Hyperlipidemia
Hearing loss
Hypothyroidism
Past Surgical History: Reports Appendectomy and Other
Additional Past Surgical History:
Cholecystectomy
Appendectomy
Social History
Tobacco: Former Smoker
Alcohol: Former
Drug: None
Personal:
Living: With Family
Family History
Family History: Not pertinent
Allergies / Home Medications
Allergies reflects when Allergies were last updated in [employer].
Home Medications with original date entered in [employer]
Allergy/Medication List:
Allergies
Allergy/AdvReac Type Severity Reaction Status Date / Time
celecoxib [From Celebrex] Allergy Swelling Verified 03/05/24 11:01
Home Medications
biotin 5 mg capsule 5 mg PO DAILY 03/05/24
cholecalciferol (vitamin D3) 25 mcg (1,000 unit) tablet (Vitamin D3) 25 mcg PO DAILY 03/05/24
cyanocobalamin (vitamin B-12) 1,000 mcg tablet 1,000 mcg PO DAILY 03/05/24
famotidine 40 mg tablet (Pepcid) 40 mg PO HS 03/05/24
gabapentin 300 mg capsule 300 mg PO HS 03/05/24
glucosamine sulf dipot chlr,msm,chond 550 mg-C 30 mg-princess 1 mg capsule (Glucosamine Chondroitin) 1 cap PO DAILY 03/05/24
loperamide 2 mg tablet 2 mg PO DAILYPRN PRN dairrhea 03/05/24
montelukast 10 mg tablet (Singulair) 10 mg PO HS 03/05/24
omeprazole 40 mg capsule,delayed release 40 mg PO QPM 03/05/24
simvastatin 10 mg tablet (Zocor) 10 mg PO HS 03/05/24
levothyroxine 125 mcg tablet 125 mcg PO DAILY 03/12/24
Review of Systems
-
Constitutional: Reports No Symptoms
EENT: Reports No Symptoms
Respiratory: Reports No Symptoms
Cardiac: Reports No Symptoms
Abdomen/GI: Reports Abdominal Pain and Other (Distention)
: Reports No Symptoms
Musculoskeletal: Reports No Symptoms
Skin: Reports No Symptoms
Neurological: Reports No Symptoms
Endocrine: Reports No Symptoms
Hematologic/Lymphatic: Reports No Symptoms
Psych: Reports No Symptoms
Physical Exam
Vital Signs
Vital Signs
Temp Pulse Resp BP Pulse Ox
98.1 F 88 24 110/67 98
03/12/24 09:32 03/12/24 12:15 03/12/24 12:15 03/12/24 12:11 03/12/24 12:03
Physical Exam
General: Well Developed, Well Nourished and No Apparent Distress
HEENT: NormoCephalic, Moist mucous membranes and Atraumatic
Respiratory: Clear
Cardiac: S1/S2 and Regular Rhythm; No Murmur or Rub
GI: Soft, Non Tender, Normal Bowel Sounds and Distended; No Organomegaly
Rectal: Deferred by Provider
Musculoskeletal: No Clubbing, No Cyanosis and No Edema
Skin: No Rash
Neuro: Nonfocal/grossly intact
Psych: Calm
Laboratory Results
-
03/12/24 09:46
03/12/24 09:46
Laboratory Results
PT 19.3 Sec (11.4-14.6) H 03/12/24 09:46
INR 1.61 03/12/24 09:46
APTT 35.2 Sec (23.4-35.0) H 03/12/24 09:46
Total Bilirubin Cancelled 03/12/24 09:46
AST Cancelled 03/12/24 09:46
ALT Cancelled 03/12/24 09:46
Alkaline Phosphatase Cancelled 03/12/24 09:46
Data Reviewed
-
CT Scan: Report Reviewed by me
Lab Data: Labs Reviewed by me
Impression/Plan
-
# Acute confusion/dehydration/failure to thrive likely hepatic
-UA negative
-Head CT with no acute findings
-obtain COVID, flu and chest x ray
# Abdominal distention
-obtain US of abdomen
-
# Metabolic acidosis likely from dehydration
# Hypercalcemia
-CO2 16
-Received 1 L normal saline in ER
-Monitor BMP in a.m.
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
-Reportedly last drink was 3 weeks ago
#Hyperlipidemia: Cont statin
#Hypothyroidism
-levothyroxine continued
#GERD: cont famotidine and omeprazole
#h/o DVT/PE
-heparin sq
FULL
[2024-03-12 14:56] LABS: ALT (SGPT) 23 U/L (0-50); AST (SGOT) 78 U/L (17-59); Albumin 3.6 g/dl (3.5-5.0); Alkaline Phosphatase 234 U/L (38-126); Direct Bilirubin 1.4 mg/dl (0.0-0.4); Total Protein 5.6 g/dl (6.3-8.2)
--- NOTE | 2024-03-12 15:29 | W.PN.UPDATE ---
Update Note
Progress Note Update
This is an addendum to the H&P written by 03/12/2024. Patient seen and examined independently with BARGE PILOT. 88-year-old male past medical history of alcoholic cirrhosis, hyperlipidemia, hypothyroidism, DVT/PE previously on Xarelto, presenting for
ongoing confusion and weakness.
He was recently admitted for metabolic encephalopathy. Ammonia level was 25 at that time. Blood cultures were negative. Infectious workup was negative. There is possible colitis on CT scan and antibiotics were not pursued.
Patient presents with ongoing encephalopathy. Ammonia level under 9. Slight elevation in liver enzymes. CT head negative. Urinalysis unremarkable.
Clinically seems like hepatic encephalopathy although ammonia level under 9. Check chest x-ray, COVID and influenza. Check abdominal ultrasound given worsening abdominal distention to evaluate for ascites. Patient continues to have diarrhea so
unable to give lactulose.
[2024-03-12 16:31] LABS: COVID-19 Antigen Negative (Negative)
--- NOTE | 2024-03-12 18:42 | EDRN ---
pt family requesting that GI or a Dr speak with them regarding pts quality of life and expectancy moving forward.
[2024-03-12] MEDS: PROTONIX 40 MG PO (20:34)
[2024-03-12] MEDS: SINGULAIR 10 MG PO (21:50)
[2024-03-12] MEDS: NEURONTIN 300 MG PO (21:50)
[2024-03-12] MEDS: LIPITOR 10 MG PO (21:50)
[2024-03-12] MEDS: PEPCID 40 MG PO (21:50)
[2024-03-13] MEDS: SYNTHROID 125 MCG PO (05:42)
[2024-03-13 06:00] VITALS: BMI 23.6
--- NOTE | 2024-03-13 06:16 | PTCARENOTE ---
Patient arrived on unit @1923 via stretcher from ED with family at bedside, assist x2 with ambulation to bed. Patient is AAOx1, denies any pain or discomfort, gait very unsteady. Skin assessment completed, oriented to unit, bed alarm placed and call
hernandez in reach. Patient became restless, climbing out of bed approximately 2200, asking for his . Nurse reoriented patient, but behavior continues. WEATHERIZATION AND HOUSING INSPECTOR made aware, in to see patient. Upon ordering STAT zyprexa pt became calm and resting. Patient
remained calm throughout rest of shift, plan of care continues.
--- NOTE | 2024-03-13 07:23 | W.PN.HOSP.TC ---
Today's Communication/Plan
-
Recheck BMP this evening
Please see below
Assessment / Plan
Assessment / Plan
Physical Exam
General: Not in acute distress
HEENT: Normocephalic
Respiratory: Clear to Auscultation Bilaterally
Cardiac: S1/S2 and Regular Rhythm
GI: Soft, Non Tender, Normal Bowel Sounds and Distended
Musculoskeletal: No Cyanosis and No Edema
Skin: Warm. Dry.
Neuro: Nonfocal/grossly intact
Psych: Calm
Assessment/Plan
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
He was recently admitted for metabolic encephalopathy. Ammonia level was 25 at that time. Blood cultures were negative. Infectious workup was negative. Possible colitis on CT scan and antibiotics were not pursued.
Patient presents with ongoing encephalopathy. Ammonia level under 9. Slight elevation in liver enzymes. CT head negative. Urinalysis unremarkable.
Clinically seems like hepatic encephalopathy although ammonia level under 9. Check abdominal ultrasound given worsening abdominal distention to evaluate for ascites. Patient continues to have diarrhea so unable to give lactulose.
88-year-old male history of alcoholic cirrhosis here for ongoing confusion after recent admission for encephalopathy. Still having diarrhea. Check abdominal ultrasound due to worsening distention.
# Acute confusion/dehydration/failure to thrive likely hepatic
-At baseline, patient drives, is able to care for himself as per patient's daughter Stephanie
-UA negative
-CXR with small right pleural effusion
-Head CT with no acute findings
-COVID negative, flu negative
-Squamous cell carcinoma/hypercalcemia contributing?
-Will consult neurology, appreciate their evaluation and recommendations
# Abdominal distention suspected secondary to overall mild abdominopelvic ascites - progressed.
-As noted in ultrasound of abdomen
# Metabolic acidosis likely from dehydration
# Hypercalcemia
-CO2 16
-Received 1 L normal saline in ER
-Monitor BMP in a.m.
-Consulted nephrology as would be a challenge to give additional IV fluids
#Squamous Cell Carcinoma
-Dr. 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
-Contributing to confusion?
-Consulted oncology, appreciate their evaluation and recommendations
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
-Reportedly last drink was 3 weeks ago
#Hyperlipidemia: Cont statin
#Hypothyroidism
-Levothyroxine continued
#GERD: cont famotidine and omeprazole
#h/o DVT/PE
DVT Prophylaxis: With significant thrombocytopenia with platelets less than 50k, will do SCDs as long as no DVT on lower extremity ultrasound
Code Status: FULL CODE
On 03/13/24, I spoke with patient's daughter Stephanie over the phone. All questions and concerns were answered to satisfaction.
Anticipated Discharge: > 48 hours
Subjective/Interval History
-
Date of Service: March 13, 2024
Patient was seen and examined. He was confused, reported no complaints.
Objective Data
-
Labs:
Laboratory Results
03/13/24
07:04
WBC Pending
Hgb Pending
Hct Pending
Plt Count Pending
Vital Signs:
Vital Signs
Temp Pulse Resp BP Pulse Ox
98.0 F 94 22 119/55 94
03/12/24 23:00 03/12/24 23:00 03/12/24 23:00 03/12/24 23:00 03/12/24 23:00
I&O
03/12/24 03/13/24 03/14/24
06:59 06:59 06:59
Intake Total 290 / 290
Balance 290 / 290
[2024-03-13 08:01] VITALS: BP 109/58
[2024-03-13 08:12] LABS: INR 1.98; PT 22.6 Sec (11.4-14.6)
[2024-03-13 08:44] LABS: Hematocrit 39.7 % (39.0-52.0); Hemoglobin 13.3 g/dL (13.0-18.0); Mean Corp Hgb Conc. 33.5 g/dL (33.0-37.0); Mean Corpuscular Hgb 28.2 pg (27.0-31.0); Mean Corpuscular Volume 84.3 fL (80.0-94.0); Platelet Count 33 10^3/uL (130-400); Red Blood Cell Count 4.71 10^6/uL (4.70-6.10); Red Cell Dist. Width 20.3 % (11.5-14.5); White Blood Cell Count 4.7 10^3/uL (4.8-10.8)
[2024-03-13 08:49] LABS: ALT (SGPT) 23 U/L (0-50); AST (SGOT) 68 U/L (17-59); Albumin 3.1 g/dl (3.5-5.0); Alkaline Phosphatase 216 U/L (38-126); Blood Urea Nitrogen 20 mg/dl (9-20); Calcium 10.3 mg/dl (8.4-10.2); Carbon Dioxide 16 mmol/L (22-30); Chloride 106 mmol/L (98-107); Estimated Creatinine Clearance 70 ml/min; Glucose 73 mg/dl (70-99); Potassium 4.1 mmol/L (3.5-5.1); Sodium 141 mmol/L (135-145); Total Bilirubin 4.2 mg/dl (0.2-1.3); eGFR > 60.00
--- NOTE | 2024-03-13 11:23 | W.CON.PAL ---
Consultation
-
Date/Time Consultation Requested: 03/12/2024
Date/Time Consultation Performed: 03/13/2024
Requesting Provider: Birgit Morrison
Performing Provider: Kayla robertson
Reason for Consult: Goals of Care Discussion
Primary Diagnosis: Cirrhosis, encephalopathy
Consult Requested By: Patient's Physician
Reason for Admission
Illness Course/HPI
Pedro is a 88 y/o male admitted to hospital yesterday evening with encephalopathy. cause TBD. Recent hospitalization for the same, discharged 03/07.
Palliative care consulted for general goals of care
Functional Status
Moved to [facility] about 4.5 months ago from [place]. live in a [place] + community with his , 1st floor bedroom. at his baseline is physically able, driving. did not have recurrent issues with confusion previously. last etoh > 3 weeks ago.
daughter lives less than 10 mins away and able to help
with physical limitations
Goals of Care Discussion
-
Individuals Present for Discussion & Relationship to Patient:
Patient confused
Patient able to participate in discussion at time of visit: No
Patient Goals
Patient unable to participate in goals of care conversation
Daughter reports that during last hospitalization patient expressed would want resuscitation - full code
Patient does not have advanced directives. 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
Discussed outpatient palliative services agreeable.
Pain & Symptom Assessment
-
Patient confused, drowsy. unable to provide ros
Objective Data
-
Objective Data:
Vital Signs
Temp Pulse Resp BP Pulse Ox
97.4 F 88 16 109/58 93
03/13/24 08:01 03/13/24 08:01 03/13/24 08:01 03/13/24 08:01 03/13/24 08:01
Laboratory Results
03/13/24 07:26
03/13/24 07:04
PT 22.6 Sec (11.4-14.6) H 03/13/24 07:44
INR 1.98 03/13/24 07:44
APTT 35.2 Sec (23.4-35.0) H 03/12/24 09:46
Ammonia < 9 umol/L (9-30) L 03/12/24 10:31
Total Protein 5.0 g/dl (6.3-8.2) L 03/13/24 07:04
Albumin 3.1 g/dl (3.5-5.0) L 03/13/24 07:04
Urine Color Elise 03/12/24 12:15
Urine Clarity Clear (Clear) 03/12/24 12:15
Urine pH 5.0 (5.0-9.0) 03/12/24 12:15
Ur Specific [place] 1.025 (<1.030) 03/12/24 12:15
Urine Ketones 2+ (Negative) A 03/12/24 12:15
Urine Bilirubin 2+ (Negative) A 03/12/24 12:15
Palliative Performance Scale
Palliative Performance Scale:
PPS Level Ambulation Activity & Evidence of Disease Self Care Intake Conscious Level
100% Full Normal Activity & Work; Full Intake Full
No Evidence of Disease
90% Full Normal Activity & Work; Full Normal Full
Some Evidence of Disease
80% Full Normal Activity with Effort Full Normal or Full
Some Evidence of Disease Reduced
70% Reduced Unable Normal Job/Work Full Normal or Full
Significant Disease Reduced
60% Reduced Unable Hobby/Housework Occasional Normal or Full or Confusion
Significant Disease Assistance Reduced
50% Mainly Sit/Lie Unable to do Any Work Considerable Normal or Full or Confusion
Extensive Disease Assistance Req'd Reduced
40% Mainly in Bed Unable to do Most Activity Mainly Assistance Normal or Full or Drowsy;
Extensive Disease Reduced +/- Confusion
30% Totally Bed Unable to do Any Activity Total Care Normal or Full or Drowsy;
Bound Extensive Disease Reduced +/- Confusion
20% Totally Bed Bound Unable to do Any Activity Total Care Minimal to Full or Drowsy;
Extensive Disease Sips +/- Confusion
10% Totally Bed Bound Unable to do Any Activity Total Care Mouth Care Drowsy or Coma;
Extensive Disease Only +/- Confusion
0%
PPS Score Level:
Palliative Performance Score Response
Palliative Performance Score Response: 40%
Physical Exam
-
General: Comfortable
Psych: Confused
patient fatigued, confused, lethargic
Assessment / Plan
-
Assessment/Plan:
Goals are treatment oriented.
Remains full code at this time
Discussed importance of advanced care planning
Agreeable to outpatient palliative care once stable for discharge
Floor time 40 min
--- NOTE | 2024-03-13 13:00 | CM ---
Reviewed chart, spoke with patient's daughter and who were at bedside. Patient's daughter stated that patient and his spouse live in a [place] and over community. Their daughter and son in law live 1 mile away and patient's daughter has been staying
with patient for the last two weeks, 01/11. There are two steps to enter the home and patient has a first floor set up. Patient uses a cane to assist with his ambulation and his and daughter assist with all of his ADLs, personal care, dressing
and bathing. Patient's daughter does all the order control clerk blood bank, cooking and his does the laundry. Patient eats out often and he and his make microwave meals. They have a woman who comes in to clean twice a month.
Patient has a shower chair, elevated toilet and bars. There is a grab bar in the shower.
Patient does not use any other DME.
He has not had VN services in the past.
He has not been to a SNF in the past
Patient's daughter stated that she is having difficulty taking care of patient and his 24hrs as she has her own family. She and patient's are agreeable to whatever is indicated on behalf of medical staff regarding discharge.
Plan: Case management will continue to follow and assist with discharge planning. Will watch for SNF needs.
[2024-03-13 15:47] VITALS: BP 112/58
[2024-03-13] MEDS: PROTONIX 40 MG PO (17:06)
[2024-03-13 23:00] VITALS: BP 116/61
[2024-03-13] MEDS: LIPITOR 10 MG PO (23:31)
[2024-03-13] MEDS: NEURONTIN 300 MG PO (23:31)
[2024-03-13] MEDS: SINGULAIR 10 MG PO (23:31)
[2024-03-13] MEDS: PEPCID 40 MG PO (23:31)
--- NOTE | 2024-03-14 00:22 | W.PN.UPDATE ---
Update Note
Progress Note Update
Received TT from attending provider, Dr. Walls, regarding U/S finding of extensive DVT of right leg from groin to and including calf. Attending asked that stat Hem/Onc, IR and Vascular surgery consults be placed and communicated, which were done
via TT. Stat Chest CT done, no PE identified. Dr. Deleon, also reviewed chart/labs/studies and evaluated patient, found patient w/IVC filter in place, hx of DVT, patient stable, no need to transfer patient at this time.
[2024-03-14 00:50] LABS: Blood Urea Nitrogen 23 mg/dl (9-20); Calcium 10.6 mg/dl (8.4-10.2); Carbon Dioxide 18 mmol/L (22-30); Chloride 105 mmol/L (98-107); Estimated Creatinine Clearance 62 ml/min; Glucose 76 mg/dl (70-99); Potassium 4.8 mmol/L (3.5-5.1); Sodium 139 mmol/L (135-145); eGFR > 60.00
--- NOTE | 2024-03-14 03:58 | PTCARENOTE ---
Patient f/u ultrasound result: Extensive DVT of the right lower extremity from the groin to and including the calf. Patient AAOx1 drowsy, easily arousable has no c/o pain. Right leg with trace edema, no c/o pain or discomfort, no redness or
tenderness. 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 Chest CT ordered, results negative for PE. Dr. Deleon in to see patient. Plan of care continues.
[2024-03-14 06:00] VITALS: BMI 23.3
--- NOTE | 2024-03-14 06:54 | CON.GI ---
Addendum entered and electronically signed by Shola Preston MD 03/14/24 16:12:
Patient seen and examined, agree with nurse practitioner note. Patient is an 88-year-old male with history of cirrhosis, recently moved here from [place], with recent admission with abdominal distention. At that point he was noted to have diffuse
adenopathy, and did not have enough ascites to tap and was discharged for outpatient follow-up. He is now admitted again with change in mental status, with worsening in encephalopathy. His ammonia level has been normal repeatedly, and there is no
history of encephalopathy in the past related to his cirrhosis. Currently on exam he is arousable though not appropriate, unable to answer any further questions. He does have diffuse adenopathy, with several large firm right sternocleidomastoid
lymph nodes, with probable mild ascites. On ultrasound now he has not enough ascites to tap. At this point is unclear whether his mental status is related hepatic encephalopathy as he is never had this before and has normal ammonia. Will continue
empiric lactulose and rifaximin anyway, neurology is following. If improves again would recommend workup for his diffuse adenopathy, consider biopsy of neck lymph node, as this is a concern for some underlying malignancy..
Original Note:
Consultation
-
Date/Time Consultation Requested: 03/13/24 1700
Date/Time Consultation Performed: 03/14/24 0700
Requesting Provider: Ramu Walls MD
Performing Provider: SHAD Martinez, Sergio Preston MD
Reason for Consultation: cirrhosis, confusions
Medical History
Chief Complaint / HPI
Chief Complaint: abdominal distention, confusion
History of Present Illness:
Pt is an 88yo with hx cirrhosis (newly diagnosed but per family ? noted on prior records from [place]), ETOH abuse(quit about 3 weeks ago), GERD, hypothyroidism, hypercholesterolemia, hearing loss, basal cell with prior mohs, squamouc cell CA,
surgery, hx PE(off anticoagulation as of 4 weeks ago ), prior quentin, appe, b/l hip surgery, who presented to last week with with abdominal distention and change in mental status with normal ammonia level.Prior to that visit had US done in
November with hepatic steatosis/cirrhosis, splenomegaly. Repeat last week limited US on admission with trace ascites unable to drain. Ct noted with small effusion, interstitial fibrosis, enlarged nodes in mediastinum, anterior pericardium, abdomen
with concern for neoplastic process. Also noted changes of cirrhosis, splenomegaly, recannulization paraumbilical vein, paraesophageal varices with moderate ascites. Fatty pancreas, colitis possible colopathy, lytic spinal lesions schmorls nodules
vs other neoplastic lesions. GI was consulted to discuss cirrhosis. Paracentesis was considered but not enough fluid to tap. Lactulose was considered but ammonia was normal. Pt was also noted with enlarged nodes with concern for neoplastic
process and oncology was consulted. Pt was noted with recent flow cytometry without evidence for leukemia or lymphoma and pancytopenia thought to be related to underlying cirrhosis. Pt was also noted with marked elevated TSH of 26 with adjustment
per medical team. He now returns for continued confusion and weakness with decreased appetite.
On return multiple imaging studies completed including stable CT head, progressed ascites on limited US, LE US with extensive DVT RLE from groin to calf and CT chest with moderate adenopathy, reactive vs mets, moderate right pleural effusion,
enlarged thyroid gland, upper abd ascites and splenomegaly. Labs on return with continued bandemia, thrombocytopenia, coagulopathy, and normal ammonia level. Recent liver work up with AFP <0.8, normal A1AT, AMA, SLA, LKM, with neg hepatitis
serology and mild low iron sat but otherwise normal iron studies. Pt did have wt loss of 7 kg since prior admission last week with decreased appetite. Per review with family last week some recent increased abdominal girth but also confusion and now
noted with incomprehensible conversation. Pt did have some loose stools but no chronic issues with dysphagia, GERD, nausea, vomiting, hematemesis, abdominal pain, constipation, blood or black in stools. Pt admits to Tylenol PM 2 tab nightly
for years.
Past Medical History
Past Medical History: Cancer (basal cell, squamous cell CA), GERD, Hypercholesterolemia, Hypothyroidism and Other (PE with filter in place, cirrhosis, ETOH abuse, imaging with adenopathy, enlarged thyroid gland on imaging )
Past Surgical History: Appendectomy, Cholecystectomy, Orthopedic (b/l hip surgery ) and Other (mohs surgery)
Social History
Tobacco: Former Smoker
Alcohol: Chronic Alcoholic (6-12 oz daily but per family may have been increased amounts )
Drug: None
Personal:
Living: With Family
Employment: Retired
Family History
Family History: Other (no family hx cirrhosis, or GI malignancies )
Allergies / Home Medications
Allergy/AdvReac Type Severity Reaction Status Date / Time
celecoxib [From Celebrex] Allergy Swelling Verified 03/05/24 11:01
�Medication �Instructions �Recorded
biotin 5 mg capsule 5 mg PO DAILY Supplement 03/05/24
cholecalciferol (vitamin D3) 25 25 mcg PO DAILY Supplement 03/05/24
mcg (1,000 unit) tablet (Vitamin
D3)
cyanocobalamin (vitamin B-12) 1,000 mcg PO DAILY Supplement 03/05/24
1,000 mcg tablet
famotidine 40 mg tablet (Pepcid) 40 mg PO HS Gastrointestinal Issue 03/05/24
gabapentin 300 mg capsule 300 mg PO HS Pain 03/05/24
glucosamine sulf dipot 1 cap PO DAILY Supplement 03/05/24
chlr,msm,chond 550 mg-C 30 mg-princess
1 mg capsule (Glucosamine
Chondroitin)
loperamide 2 mg tablet 2 mg PO DAILYPRN PRN dairrhea 03/05/24
montelukast 10 mg tablet 10 mg PO HS Allergies 03/05/24
(Singulair)
omeprazole 40 mg capsule,delayed 40 mg PO QPM Gastrointestinal Issue 03/05/24
release
simvastatin 10 mg tablet (Zocor) 10 mg PO HS High Cholesterol 03/05/24
levothyroxine 125 mcg tablet 125 mcg PO DAILY Thyroid 03/12/24
Review of Systems
-
Unable to obtain full review of systems at this time due to: Other (minimal verbal with incomprehensible conversation)
History Source: Patient
Constitutional: Reports Weight Loss and Fatigue
EENT: Reports Other (right neck enlarged node )
Cardiac: Reports No Symptoms
Abdomen/GI: Reports No Symptoms
Musculoskeletal: Reports No Symptoms
Neurological: Reports Weakness and Other (confusion)
Endocrine: Reports No Symptoms
Hematologic/Lymphatic: Reports Swollen Glands (right neck enlarged node )
Vital Signs
Temp Pulse Resp BP Pulse Ox
97.8 F 94 30 116/61 94
03/13/24 23:00 03/13/24 23:00 03/13/24 23:00 03/13/24 23:00 03/13/24 23:00
Physical Exam
Exam
General: Other (sleepy but arousable and incomprehensible conversation )
HEENT: Normocephalic and Anicteric
Respiratory: Other (decreased )
Cardiac: Other (tachy )
GI: Soft, Non Tender and Distended (minimal )
Musculoskeletal: No Clubbing and No Cyanosis
Skin: Warm and Dry
Neuro: Other (lethargic )
Psych: Calm and Confused
Results
WBC Cancelled 03/13/24 07:26
Hgb Cancelled 03/13/24 07:26
Hct Cancelled 03/13/24 07:26
MCV Cancelled 03/13/24 07:26
Plt Count Cancelled 03/13/24 07:26
Absolute Neuts (auto) Cancelled 03/13/24 07:26
PT 22.6 Sec (11.4-14.6) H 03/13/24 07:44
INR 1.98 03/13/24 07:44
APTT 35.2 Sec (23.4-35.0) H 03/12/24 09:46
Sodium 139 mmol/L (135-145) 03/14/24 00:24
Potassium 4.8 mmol/L (3.5-5.1) 03/14/24 00:24
Chloride 105 mmol/L (98-107) 03/14/24 00:24
Carbon Dioxide 18 mmol/L (22-30) L 03/14/24 00:24
BUN 23 mg/dl (9-20) H 03/14/24 00:24
Creatinine 0.9 mg/dL (0.7-1.3) 03/14/24 00:24
Calcium 10.6 mg/dl (8.4-10.2) H 03/14/24 00:24
Total Bilirubin 4.2 mg/dl (0.2-1.3) H 03/13/24 07:04
AST 68 U/L (17-59) H 03/13/24 07:04
ALT 23 U/L (0-50) 03/13/24 07:04
Alkaline Phosphatase 216 U/L (38-126) H 03/13/24 07:04
Diagnostic Image Results:
HCT
1. No acute intracranial abnormalities appreciated.
2. Mild atrophy and mild chronic small vessel change
03/12 US abdomen limited Overall mild abdominopelvic ascites as described above. Progressed.\\
03/12 CXR
Moderate elevation of the right hemidiaphragm. Stable
Small right pleural effusion. Stable
03/12 US Periph Venous LOWER Ext Sarkis
Extensive DVT of the right lower extremity from the groin to and including the calf.
No evidence of DVT of the left lower extremit
03/12 CT chest
No evidence of pulmonary embolus.
Moderate lymphadenopathy involving the mediastinum, subcarinal region, right hilum, bilateral lower neck and right cardiophrenic region. This may be reactive. Lymphoma and metastatic disease are possibilities as well
Small left lower lobe noncalcified pleural-based pulmonary nodule. Too small for PET imaging. Continued surveillance recommended. This will be emailed to the [facility] pulmonary nodule advisory board.
Moderate right pleural effusion.
Moderate right lower lobe consolidation.
Enlarged thyroid gland. Dedicated thyroid ultrasound recommended if not previously evaluated.
Mild upper abdominal ascites.
Splenomegaly. Incompletely a imaged.
03/05/24 CT Abd/Pel (IV only)-DH only
IMPRESSION: Small right pleural effusion. Atelectasis in the posterior right lower lung. Mild interstitial fibrosis in the inferior left lower lung. Linear densities within the left lower lung compatible with scarring and/or linear atelectasis.
Enlarged lymph nodes within the mediastinum, the right anterior pericardium, and within the abdomen. The degree of enlargement raises concern for neoplastic process such as leukemia or lymphoma.
Cirrhosis of the liver. Splenomegaly. Recannulized paraumbilical vein. Paraesophageal varices.
Moderate amount of ascites within the abdomen and pelvis.
Fatty infiltration of the pancreas.
Wall thickening diffusely involving the entire colon. This is suggestive of colitis. Portal colopathy is also a consideration.
Lytic lesions within the lower thoracic vertebrae appear to be related to Schmorl's nodes involving the endplates. Neoplastic lesions are a differential consideration, but felt to be less likely. Continued CT follow-up could be considered.
Bilateral hip prostheses, with resultant streak artifact.
03/05/24- US limited Trace volume of ascites not sufficient for percutaneous drainage.
11/18/23 US abdomen
Coarse hepatic parenchyma without service nodularity or increased echogenicity to suggest hepatic steatosis or cirrhosis.
Bilateral renal cortical atrophy. No nephrolithiasis or hydronephrosis.
Atherosclerotic, nonaneurysmal abdominal aorta.
Splenomegaly measuring up to 15.2 cm.
Targeted ultrasound of the midline abdominal wall demonstrated no abnormality. If there is concern for hernia, CT should be performed for further evaluation.
Prior GI Procedures:
EGD: none
Colonoscopy: last 2018 with hx polyps in past done in [place]
Assessment / Plan
-
Pt is an 88yo with hx cirrhosis (newly diagnosed but per family ? noted on prior records from [place]), ETOH abuse, GERD, hypothyroidism, hypercholesterolemia, hearing loss, basal cell with prior mohs surgery, Squamous cell CA, hx PE(off
anticoagulation as of 4 weeks ago ), prior quentin, appe, b/l hip surgery, who presented to last week with with abdominal distention and change in mental status with normal ammonia level.Prior to that visit had US done in November with hepatic
steatosis/cirrhosis, splenomegaly. Repeat last week limited US on admission with trace ascites unable to drain. Ct noted interstitial fibrosis, enlarged nodes in mediastinum, anterior pericardium, abdomen with concern for neoplastic process. Also
noted changes of cirrhosis, splenomegaly, colitis possible colopathy, lytic spinal lesions. GI was consulted to discuss cirrhosis. Paracentesis was considered but not enough fluid to tap. Lactulose was considered but ammonia was normal. Pt was
also noted with enlarged nodes with concern for neoplastic process and oncology was consulted. Pt was noted with recent flow cytometry without evidence for leukemia or lymphoma and pancytopenia thought to be related to underlying cirrhosis. Pt was
also noted with marked elevated TSH of 26 with adjustment per medical team. He now returns for continued confusion and weakness with decreased appetite. On return multiple imaging studies completed including stable CT head, progressed ascites on
limited US, LE US with extensive DVT RLE from groin to calf and CT chest with moderate adenopathy, reactive vs mets, moderate right pleural effusion, enlarged thyroid gland, upper abd ascites and splenomegaly. Labs on return with continued
bandemia, thrombocytopenia, coagulopathy, and normal ammonia level. Recent liver work up with AFP <0.8, normal A1AT, AMA, SLA, LKM, with neg hepatitis serology and mild low iron sat but otherwise normal iron studies. Pt did have wt loss of 7 kg
since prior admission last week with decreased appetite.
-confusion with normal ammonia level elevated calcium
-cirrhosis with increased abdominal girth mild ascites without enough fluid to drain
-pancytopenia
-coagulopathy
-bandemia
-US with extensive DVT with hx PE and prior filter recently off anticoagulation
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
-concern for neoplastic process with enlarged nodes in mediastinum, anterior pericardium, abdomen and right neck node on exam, alk phos elevation
-enlarge thyroid gland with recent elevated TSH with right neck palpated node vs thyroid
-fatty pancreas
-splenomegaly
-possible lytic spinal lesions
-ETOH dependency
-wt loss
other med problems:
-GERD
-hyperlipidemia
-hypothyroidism
-basal cell with prior mohs surgery
-squamous cell CA
-hx appe, quentin, b/l hip surgery
-hx colon polyps
PLAN:
etiology of confusion related to underlying cirrhosis but ammonia remains normal vs elevated calcium vs metabolic issue vs other
CT chest with similar finding of adenopathy and enlarge thyroid-- t/c dedicated thyroid US
will add lactulose TID to see if helps mental status
reviewed with nursing if unable to take PO may need to consider DHT for medications
MELD 3.0 19
repeat US 03/12 not enough fluid to tap
avoid ETOH and hepatotoxic medication
eventual OP EGD for variceal screening
infectious work up last week with neg blood and urine cx
await oncology and neurology follow up for adenopathy, DVT, and mental status issues - can consider bx but noted significant thrombocytopenia and coagulopathy
-
-
Thank you for consultation and allowing me to participate in the patient's care. Please call the production quality manager GI physician during the after hours with any questions or concerns.
[2024-03-14] MEDS: SYNTHROID 125 MCG PO (06:56)
--- NOTE | 2024-03-14 07:14 | CON.ONC ---
Impression
Impression
Alcoholic cirrhosis
Hypersplenism/splenomegaly
Confusion
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
Toxic metabolic vs. hepatic encephalopathy
Squamous cell skin cancer
Nonspecific lymphadenopathy
Severe thrombocytopenia likely partially contributed by hypersplenism
Mild neutropenia
Hypercalcemia
Plan
Plan
Etiology for confusion is multifactorial and could represent worsening hepatic encephalopathy vs. toxic metabolic encephalopathy.
Patient has noted to be hypercalcemic. This could be related to underlying malignancy potentially. Squamous cell skin cancer is not typically lead to systemic metastatic disease although it could potentially.
Patient's functional status currently is too poor to consider treatment for underlying advanced neoplastic disease/malignancy.
Regarding DVT/PE, patient is not an anticoagulation candidate and has an IVC filter. No additional treatment is required. CT of the chest shows no evidence of current PE. Actually, his lower extremity physical examination is normal.
At this point, we will await additional goals of care conversations as patient appears to have end-stage disease from a variety of factors including advanced cirrhosis, poor performance status, failure to thrive, encephalopathy, and potential
malignancy. If family desires additional workup, lymph node biopsy could be entertained although I doubt that confirming a diagnosis would lead to a change in his medical treatment. It also would be challenging to obtain a biopsy the patient with
such poor functional status and severe thrombocytopenia. PTH and PTH-rP could also be considered. Pamidronate 60 mg can be given for mild hypercalcemia although rising calcium over the past 4 weeks suggest an evolving process such as progressive
malignancy.
In conclusion, patient appears to have progressive failure to thrive from multiple etiologies and palliative care would be an appropriate goal but without it would clear diagnosis of malignancy, I will leave those discussions to the primary team and
palliative care teams.
Will follow with you.
Patient History
History of Present Illness
CC: confusion
Heme Consult: STAT for DVT from Dr. Wlals
HPI: Confused and extremely poor historian.
88-year-old male with PMH alcoholic cirrhosis, DVT, PE s/p IVC Filter presented to us with generalized weakness and confusion. Since the discharge from hospital last week, patient was noted to have worsening confusion and poor oral intake. He
sleeps most of the time and was not eating at all for past 2 days.
Patient with history of DVT/PE and not on anticoagulation because of significant thrombocytopenia with platelet count <50,000 so a Doppler ultrasound was ordered just to evaluate the status of DVT. Doppler ultrasound was positive for evidence of
extensive DVT of right leg from groin to and including calf. Patient does have a IVC filter in place. CT of the chest was negative for PE but does show moderate lymphadenopathy involving the mediastinum, subcarinal region, right hilum, bilateral
neck and right cardiophrenic region. Differential diagnosis includes reactive versus neoplastic disease.
There is also a question to us regarding squamous cell skin cancer. As to whether or not the patient who has history of a squamous cell skin cancer and was scheduled to have additional dermatologic surgery with Dr. Maya Schaeffer can be confused
related to this diagnosis.
Patient is extremely poor historian unable to discuss any symptoms. He is oriented x 1 only.
Past-Medical/Surgical History
PMH: GERD, hyperlipidemia, hypothyroidism, alcoholic cirrhosis, DVT, PE, squamous cell skin cancer, hearing loss, Hypothyroidism
PSH: Appendectomy, Cholecystectomy
Social History
Tobacco: Former Smoker
Alcohol: Former
Drug: None
Personal:
Living: With Family
Family History
Family History: Not pertinent
Patient Medication
�Medication �Instructions �Recorded �Confirmed �Last Taken �Type
biotin 5 mg capsule 5 mg PO DAILY Supplement 03/05/24 03/12/24 03/05/24 History
cholecalciferol (vitamin D3) 25 25 mcg PO DAILY Supplement 03/05/24 03/12/24 03/05/24 History
mcg (1,000 unit) tablet (Vitamin
D3)
cyanocobalamin (vitamin B-12) 1,000 mcg PO DAILY Supplement 03/05/24 03/12/24 03/05/24 History
1,000 mcg tablet
famotidine 40 mg tablet (Pepcid) 40 mg PO HS Gastrointestinal Issue 03/05/24 03/12/24 03/04/24 History
gabapentin 300 mg capsule 300 mg PO HS Pain 03/05/24 03/12/24 03/04/24 History
glucosamine sulf dipot 1 cap PO DAILY Supplement 03/05/24 03/12/24 03/05/24 History
chlr,msm,chond 550 mg-C 30 mg-princess
1 mg capsule (Glucosamine
Chondroitin)
loperamide 2 mg tablet 2 mg PO DAILYPRN PRN dairrhea 03/05/24 03/12/24 03/05/24 History
montelukast 10 mg tablet 10 mg PO HS Allergies 03/05/24 03/12/24 03/04/24 History
(Singulair)
omeprazole 40 mg capsule,delayed 40 mg PO QPM Gastrointestinal Issue 03/05/24 03/12/24 03/04/24 History
release
simvastatin 10 mg tablet (Zocor) 10 mg PO HS High Cholesterol 03/05/24 03/12/24 03/04/24 History
levothyroxine 125 mcg tablet 125 mcg PO DAILY Thyroid 03/12/24 03/12/24 Unknown History
Active Medications
Generic Name Dose Route Start Last Admin
Trade Name Freq PRN Reason Stop Dose Admin
Atorvastatin Calcium 10 mg 03/12/24 22:00 03/13/24 23:31
Atorvastatin (Lipitor) 10 Mg Tablet PO 04/09/24 21:59 10 mg
HS TOMASA Administration
Bisacodyl 10 mg 03/12/24 19:23
Bisacodyl 10 Mg Rectal Suppository RECTAL 04/09/24 19:22
[id number] PRN
constipation
Famotidine 40 mg 03/12/24 22:00 03/13/24 23:31
Famotidine 40 Mg Tablet PO 04/09/24 21:59 40 mg
HS TOMASA Administration
Gabapentin 300 mg 03/12/24 22:00 03/13/24 23:31
Gabapentin 300 Mg Capsule PO 04/09/24 21:59 300 mg
HS TOMASA Administration
Heparin Sodium 5,000 units 03/12/24 20:00
Heparin 5,000 Units/Ml 1 Ml Vial SC 04/09/24 19:59
Q12 TOMASA
Levothyroxine Sodium 125 mcg 03/13/24 06:00 03/14/24 06:56
Levothyroxine 125 Mcg Tablet PO 04/10/24 05:59 125 mcg
DAILY@0600 TOMASA Administration
Montelukast Sodium 10 mg 03/12/24 22:00 03/13/24 23:31
Montelukast Sodium 10 Mg Tablet PO 04/09/24 21:59 10 mg
HS TOMASA Administration
Pantoprazole Sodium 40 mg 03/12/24 20:00 03/13/24 17:06
Pantoprazole 40 Mg Delayed Release Tablet PO 04/09/24 19:59 40 mg
QPM TOMASA Administration
Polyethylene Glycol 17 grams 03/12/24 19:23
Polyethylene Glycol Powder 17 Grams Packet PO 04/09/24 19:22
DAILYPRN PRN
constipation
Senna/Docusate Sodium 1 tablet 03/12/24 19:23
Docusate W/Senna (Margaret-Colace) Tablet PO 04/09/24 19:22
BIDPRN PRN
constipation
Sodium Chloride 0 flush 03/12/24 21:00
Sodium Chloride 0.9% (Flush) Syringe IV 04/09/24 20:59
PER PROTOCOL TOMASA
Physical Exam
-
General: Other (Confused, disoriented, drowsy)
HEENT: Negative Jaundice
Cardiology: S1 and S2
Pulmonary: Rhonchi
GI: Soft
Extremities: No C/C/E; Negative Edema
Neurology: Other (Encephalopathic)
Labs
Lab Results
WBC Cancelled 03/13/24 07:26
RBC Cancelled 03/13/24 07:26
Hgb Cancelled 03/13/24 07:26
Hct Cancelled 03/13/24 07:26
MCV Cancelled 03/13/24 07:26
MCH Cancelled 03/13/24 07:26
MCHC Cancelled 03/13/24 07:26
RDW Cancelled 03/13/24 07:26
Plt Count Cancelled 03/13/24 07:26
MPV Cancelled 03/13/24 07:26
Abs Immat Gran (auto) Cancelled 03/13/24 07:26
Absolute Neuts (auto) Cancelled 03/13/24 07:26
Absolute Lymphs (auto) Cancelled 03/13/24 07:26
Absolute Monos (auto) Cancelled 03/13/24 07:26
Absolute Eos (auto) Cancelled 03/13/24 07:26
Absolute Basos (auto) Cancelled 03/13/24 07:26
Immature Gran % Cancelled 03/13/24 07:26
Neutrophils % Cancelled 03/13/24 07:26
Lymphocytes % Cancelled 03/13/24 07:26
Monocytes % Cancelled 03/13/24 07:26
Eosinophils % Cancelled 03/13/24 07:26
Basophils % Cancelled 03/13/24 07:26
Creatinine 0.9 mg/dL (0.7-1.3) 03/14/24 00:24
Vital Signs
Vital Signs
Temp Pulse Resp BP Pulse Ox
97.8 F 94 25 116/61 94
03/13/24 23:00 03/13/24 23:00 03/14/24 00:00 03/13/24 23:00 03/13/24 23:00
[2024-03-14 07:35] VITALS: BP 122/79
[2024-03-14 07:49] LABS: Hematocrit 40.5 % (39.0-52.0); Hemoglobin 13.4 g/dL (13.0-18.0); Mean Corp Hgb Conc. 33.3 g/dL (33.0-37.0); Mean Corpuscular Volume 84.3 fL (80.0-94.0); Red Blood Cell Count 4.78 10^6/uL (4.70-6.10); White Blood Cell Count 5.8 10^3/uL (4.8-10.8)
[2024-03-14 07:50] LABS: Platelet Count 32 10^3/uL (130-400)
--- NOTE | 2024-03-14 08:01 | CON.NEURO ---
Neuro Assessment/Plan
Assessment
Acute worsening of mentation in a patient with end-stage alcoholic cirrhosis and unremarkable ammonia level
Plan
Agree with palliative care
Would provide the patient with lactulose despite normal ammonia level due to the possibility of hepatic encephalopathy
Would not perform EEG at this time as the findings are unlikely to be associated with significant improvement with therapy
Provide thiamine for completeness
Will follow as needed
Consultation
Order
Date of Consultation: 03/14/24
Requesting Provider: Hospitalist
Reason for Consult: Encephalopathy
Subjective/Objective
Subjective Data
Date of Service: March 14, 2024
Unknown handed
Patient was recently hospitalized due to alcoholic associated cirrhosis and abdominal discomfort. Patient returned to this hospital's emergency department on May 13, 2023 due to speech decline and disorientation. The patient previously was
diagnosed with hepatic encephalopathy. Since presentation, patient underwent palliative care evaluation.
Objective Data
Vital Signs
Temp Pulse Resp BP Pulse Ox
36.6 C 102 25 122/79 93
03/13/24 23:00 03/14/24 07:35 03/14/24 07:35 03/14/24 07:35 03/14/24 07:35
Lab Results
03/14/24 07:17
03/14/24 00:24
PT 22.6 Sec (11.4-14.6) H 03/13/24 07:44
INR 1.98 03/13/24 07:44
APTT 35.2 Sec (23.4-35.0) H 03/12/24 09:46
Sodium 139 mmol/L (135-145) 03/14/24 00:24
Potassium 4.8 mmol/L (3.5-5.1) 03/14/24 00:24
BUN 23 mg/dl (9-20) H 03/14/24 00:24
Glucose 76 mg/dl (70-99) 03/14/24 00:24
Calcium 10.6 mg/dl (8.4-10.2) H 03/14/24 00:24
Patient Allergies
celecoxib [From Celebrex] Allergy (Verified 03/05/24 11:01)
Swelling
Review of Systems
-
Unable to obtain full review of systems at this time due to: Lethargy
History Source: Patient
All other systems: Reviewed and negative
Physical Exam
-
General: No Apparent Distress and Appears Stated Age
Eyes: Round OU, Simms Conjunctivae and No Ptosis; Negative Able to visualize OU
HEENT: Anicteric and Moist Mucous Membranes
Neck: Full Range of Motion
Respiratory: No Dyspnea
Cardiac: No JVD
GI: Non-distended
Skin: Unremarkable
Extremities: No Clubbing, No Cyanosis and No Edema
Psych: Unable to Assess
Extended Neurological Exam
Mood & Affect: Unable to Assess
Attention Span & Concentration: Awake, Unable to Perform 2 Step Request and Other (Unable to perform single step requests); Negative Alert or Interactive
Memory: Unable to Assess
Tremor: Hand Tremor Absent and Head Tremor Absent
Involuntary Movement: None
Speech: Severely Reduced Output and Dysarthric
Cranial Nerve II: Left Eye: Pupillary Reactivity Unremarkable, Pupillary Size Unremarkable and Unable to Assess Visual Rust
Cranial Nerve II: Right Eye: Pupillary Reactivity Unremarkable, Pupillary Size Unremarkable and Unable to Assess Visual Rust
Cranial Nerves III, IV, : Extraocular Movement: Extraocular Movement Full in all Directions
Cranial Nerve VII: Facial Symmetry: Normal Facial Symmetry
Cranial Nerve VIII: Hearing: Unremarkable Hearing to Normal Conversational Volume
Cranial Nerves IX, X: Palate Movement: Palate Elevation Symmetric
Cranial Nerve XI: Shoulder Shrug: Unable to Assess
Cranial Nerve XII: Tongue Protusion: Unable to Assess
Muscle Strength, Overall: Spontaneously Moves (All extremities)
Muscle Bulk & Tone: Bulk Unremarkable and Tone Unremarkable
Pronator Drift: Unable to Assess
Deep Tendon Reflexes: Absent Throughout
Cold Sensation: Unable to Assess
Vibration Sensation: Unable to Assess
Touch Sensation: Withdrawal to Pain
Coordination: Unable to Assess
Babinski Sign: Absent Bilaterally
Gait & Station: Unable to Assess
Data Reviewed
-
CT Head: Report Reviewed
Labs: Ordered and Report Reviewed
Reviewed with: Physician and Nurse Practioner
Old Records: Summarized
Medications
-
Active Medications
Generic Name Dose Route Start Last Admin
Trade Name Freq PRN Reason Stop Dose Admin
Atorvastatin Calcium 10 mg 03/12/24 22:00 03/13/24 23:31
Atorvastatin (Lipitor) 10 Mg Tablet PO 04/09/24 21:59 10 mg
HS TOMASA Administration
Bisacodyl 10 mg 03/12/24 19:23
Bisacodyl 10 Mg Rectal Suppository RECTAL 04/09/24 19:22
[id number] PRN
constipation
Famotidine 40 mg 03/12/24 22:00 03/13/24 23:31
Famotidine 40 Mg Tablet PO 04/09/24 21:59 40 mg
HS TOMASA Administration
Gabapentin 300 mg 03/12/24 22:00 03/13/24 23:31
Gabapentin 300 Mg Capsule PO 04/09/24 21:59 300 mg
HS TOMASA Administration
Heparin Sodium 5,000 units 03/12/24 20:00
Heparin 5,000 Units/Ml 1 Ml Vial SC 04/09/24 19:59
Q12 TOMASA
Levothyroxine Sodium 125 mcg 03/13/24 06:00 03/14/24 06:56
Levothyroxine 125 Mcg Tablet PO 04/10/24 05:59 125 mcg
DAILY@0600 TOMASA Administration
Montelukast Sodium 10 mg 03/12/24 22:00 03/13/24 23:31
Montelukast Sodium 10 Mg Tablet PO 04/09/24 21:59 10 mg
HS TOMASA Administration
Pantoprazole Sodium 40 mg 03/12/24 20:00 03/13/24 17:06
Pantoprazole 40 Mg Delayed Release Tablet PO 04/09/24 19:59 40 mg
QPM TOMASA Administration
Polyethylene Glycol 17 grams 03/12/24 19:23
Polyethylene Glycol Powder 17 Grams Packet PO 04/09/24 19:22
DAILYPRN PRN
constipation
Senna/Docusate Sodium 1 tablet 03/12/24 19:23
Docusate W/Senna (Margaret-Colace) Tablet PO 04/09/24 19:22
BIDPRN PRN
constipation
Sodium Chloride 0 flush 03/12/24 21:00
Sodium Chloride 0.9% (Flush) Syringe IV 04/09/24 20:59
PER PROTOCOL TOMASA
Home Medications
�Medication �Instructions �Recorded
biotin 5 mg capsule 5 mg PO DAILY Supplement 03/05/24
cholecalciferol (vitamin D3) 25 25 mcg PO DAILY Supplement 03/05/24
mcg (1,000 unit) tablet (Vitamin
D3)
cyanocobalamin (vitamin B-12) 1,000 mcg PO DAILY Supplement 03/05/24
1,000 mcg tablet
famotidine 40 mg tablet (Pepcid) 40 mg PO HS Gastrointestinal Issue 03/05/24
gabapentin 300 mg capsule 300 mg PO HS Pain 03/05/24
glucosamine sulf dipot 1 cap PO DAILY Supplement 03/05/24
chlr,msm,chond 550 mg-C 30 mg-princess
1 mg capsule (Glucosamine
Chondroitin)
loperamide 2 mg tablet 2 mg PO DAILYPRN PRN dairrhea 03/05/24
montelukast 10 mg tablet 10 mg PO HS Allergies 03/05/24
(Singulair)
omeprazole 40 mg capsule,delayed 40 mg PO QPM Gastrointestinal Issue 03/05/24
release
simvastatin 10 mg tablet (Zocor) 10 mg PO HS High Cholesterol 03/05/24
levothyroxine 125 mcg tablet 125 mcg PO DAILY Thyroid 03/12/24
Past History
Past History
ED Past Medical History: GERD, Hypercholesterolemia, Hypothyroidism, Other (Alcoholic cirrhosis) and Other (DVT/PE)
ED Past Surgical History: Appendectomy, Cholecystectomy and Orthopedic
Social History
Tobacco: Non-smoker
Alcohol: Chronic alcoholic
Personal:
Living: with family (Recently moved here from [place], daughter is in the process of getting them settled and eventually moving in with her )
Employment: Retired
Family History
Family History: Other (reviewed and non-contributory)
Medications
-
Medications:
Generic Name Dose Route Start Last Admin
Trade Name Freq PRN Reason Stop Dose Admin
Atorvastatin Calcium 10 mg 03/12/24 22:00 03/13/24 23:31
Atorvastatin (Lipitor) 10 Mg Tablet PO 04/09/24 21:59 10 mg
HS TOMASA Administration
Bisacodyl 10 mg 03/12/24 19:23
Bisacodyl 10 Mg Rectal Suppository RECTAL 04/09/24 19:22
[id number] PRN
constipation
Famotidine 40 mg 03/12/24 22:00 03/13/24 23:31
Famotidine 40 Mg Tablet PO 04/09/24 21:59 40 mg
HS TOMASA Administration
Gabapentin 300 mg 03/12/24 22:00 03/13/24 23:31
Gabapentin 300 Mg Capsule PO 04/09/24 21:59 300 mg
HS TOMASA Administration
Heparin Sodium 5,000 units 03/12/24 20:00
Heparin 5,000 Units/Ml 1 Ml Vial SC 04/09/24 19:59
Q12 TOMASA
Levothyroxine Sodium 125 mcg 03/13/24 06:00 03/14/24 06:56
Levothyroxine 125 Mcg Tablet PO 04/10/24 05:59 125 mcg
DAILY@0600 TOMASA Administration
Montelukast Sodium 10 mg 03/12/24 22:00 03/13/24 23:31
Montelukast Sodium 10 Mg Tablet PO 04/09/24 21:59 10 mg
HS TOMAAS Administration
Pantoprazole Sodium 40 mg 03/12/24 20:00 03/13/24 17:06
Pantoprazole 40 Mg Delayed Release Tablet PO 04/09/24 19:59 40 mg
QPM TOMASA Administration
Polyethylene Glycol 17 grams 03/12/24 19:23
Polyethylene Glycol Powder 17 Grams Packet PO 04/09/24 19:22
DAILYPRN PRN
constipation
Senna/Docusate Sodium 1 tablet 03/12/24 19:23
Docusate W/Senna (Margaret-Colace) Tablet PO 04/09/24 19:22
BIDPRN PRN
constipation
Sodium Chloride 0 flush 03/12/24 21:00
Sodium Chloride 0.9% (Flush) Syringe IV 04/09/24 20:59
PER PROTOCOL TOMASA
[2024-03-14 09:30] VITALS: BP 102/83; BP_SYST 90
[2024-03-14 10:03] LABS: Albumin 3.2 g/dl (3.5-5.0)
--- NOTE | 2024-03-14 10:05 | CHAP ---
Fr. Blayne Morataya of [facility] in [place] came and Anointed the patient at the family's request. Time uncertain.
[2024-03-14] MEDS: THIAMINE INJECTION 100 MG IV (10:45)
[2024-03-14] MEDS: DUPHALAC/CHRONULAC 20 GRAMS PO (10:50)
--- NOTE | 2024-03-14 11:43 | CON.VAS ---
Addendum entered and electronically signed by Igor Liriano MD 03/14/24 16:19:
Seen and examined earlier with [facility] Story. Agree with findings as noted below. 88-year-old male with extensive medical history. Here with confusion/encephalopathy. History of multiple recurrent DVTs per his daughter who is at the bedside. Now
presents with confusion as noted. Per daughter he has history of cirrhosis and has encephalopathy now. Not clear why but ultrasound of the lower extremities was ordered that demonstrated DVT, chronicity uncertain. There was no lower extremity
swelling from what the daughter reports (patient is not communicative at this time). His exam demonstrates relatively benign leg exam with soft thighs and calves bilaterally. No significant edema. No tenderness on exam. No phlegmasia. Duplex
reviewed. Plan/anticoagulation if no contraindication. Patient has an IVC filter in place that hopefully would protect against PE. Nothing invasively I would offer him at this point he is not a candidate for anything. Discussed with hospitalist.
Please call with questions we will sign off.
Original Note:
Consultation
Consultation Request
Performing Provider: Heri
Reason for Consultation: DVT
Medical History
-
Chief Complaint: Confusion
History of Present Illness:
88-year-old male here with confusion/encephalopathy. Past medical history significant for cirrhosis, GERD, hyperlipidemia, DVT, PE status post IVC filter, squamous cell skin cancer, hearing loss, hypothyroidism. Patient has history of DVT and PE
not on anticoagulation for significant thrombocytopenia platelet count less than 50,000. Patient was discharged from the hospital last week for confusion and poor oral intake.
CT chest negative for PE. Ultrasound positive for extensive DVT in the right leg though this could be chronic, patient does have history of DVT in that leg after multiple surgeries per the daughter.
Patient is being followed by heme-onc for potential neoplastic disease. Palliative care following with potential plans for hospice at home.
Patient seen at bedside with Dr. Liriano, daughter at bedside as well. Right lower extremity soft, no erythema, no swelling. Patient is not able to cooperate with exam at this time. Sleeping not very arousable today per the daughter.
Past Medical History
Past Medical History: Other (See above)
Past Surgical History: Appendectomy and Cholecystectomy
Family History
Family History: Reviewed & Not Pertinent
Allergies / Home Medications
Allergy/AdvReac Type Severity Reaction Status Date / Time
celecoxib [From Celebrex] Allergy Swelling Verified 03/05/24 11:01
�Medication �Instructions �Recorded �Confirmed �Type
biotin 5 mg capsule 5 mg PO DAILY Supplement 03/05/24 03/12/24 History
cholecalciferol (vitamin D3) 25 25 mcg PO DAILY Supplement 03/05/24 03/12/24 History
mcg (1,000 unit) tablet (Vitamin
D3)
cyanocobalamin (vitamin B-12) 1,000 mcg PO DAILY Supplement 03/05/24 03/12/24 History
1,000 mcg tablet
famotidine 40 mg tablet (Pepcid) 40 mg PO HS Gastrointestinal Issue 03/05/24 03/12/24 History
gabapentin 300 mg capsule 300 mg PO HS Pain 03/05/24 03/12/24 History
glucosamine sulf dipot 1 cap PO DAILY Supplement 03/05/24 03/12/24 History
chlr,msm,chond 550 mg-C 30 mg-princess
1 mg capsule (Glucosamine
Chondroitin)
loperamide 2 mg tablet 2 mg PO DAILYPRN PRN dairrhea 03/05/24 03/12/24 History
montelukast 10 mg tablet 10 mg PO HS Allergies 03/05/24 03/12/24 History
(Singulair)
omeprazole 40 mg capsule,delayed 40 mg PO QPM Gastrointestinal Issue 03/05/24 03/12/24 History
release
simvastatin 10 mg tablet (Zocor) 10 mg PO HS High Cholesterol 03/05/24 03/12/24 History
levothyroxine 125 mcg tablet 125 mcg PO DAILY Thyroid 03/12/24 03/12/24 History
Review of Systems
-
Unable to obtain full review of systems at this time due to: Patient Non Verbal
Physical Exam
Vital Signs
Temp Pulse Resp BP Pulse Ox
98.6 F 90 18 102/83 92
03/14/24 09:30 03/14/24 09:30 03/14/24 09:30 03/14/24 09:30 03/14/24 09:30
Lab Results
03/14/24 07:17
03/14/24 00:24
Physical Exam
General: No Apparent Distress
HEENT: Normocephalic and Atraumatic
Respiratory: Non Labored Respirations
Cardiac: Negative JVD
GI: Soft and Non Tender
Musculoskeletal: No Clubbing, No Cyanosis and No Edema
Skin: Warm
Psych: Other
Assessment / Plan
-
Regarding DVT patient is not an anticoagulation candidate and has an IVC filter.
Right lower extremity exam normal
Family discussing hospice/goals of care
--- NOTE | 2024-03-14 13:24 | W.PN.HOSP.TC ---
Today's Communication/Plan
-
Thiamine, Lactulose, Increase Levothyroxine based on thyroid function studies showing elevated TSH
IVC filter in place, not an anticoagulation candidate at this time
Assessment / Plan
Assessment / Plan
Physical Exam
General: Not in acute distress
HEENT: Normocephalic
Respiratory: Clear to Auscultation Bilaterally
Cardiac: S1/S2 and Regular Rhythm
GI: Soft, Non Tender, Normal Bowel Sounds and Distended
Musculoskeletal: No Cyanosis and No Edema
Skin: Warm. Dry.
Neuro: Sleeping comfortably
Psych: Calm

US Periph Venous LOWER Ext Sarkis (as per radiologist's report)
'IMPRESSION:
Extensive DVT of the right lower extremity from the groin to and including the calf.
No evidence of DVT of the left lower extremity'
CT Chest PE Study (as per radiologist's report)
'IMPRESSION: No evidence of pulmonary embolus.
Moderate lymphadenopathy involving the mediastinum, subcarinal region, right hilum, bilateral lower neck and right cardiophrenic region. This may be reactive. Lymphoma and metastatic disease are possibilities as well
Small left lower lobe noncalcified pleural-based pulmonary nodule. Too small for PET imaging. Continued surveillance recommended. This will be emailed to the [facility] pulmonary nodule advisory board.
Moderate right pleural effusion.
Moderate right lower lobe consolidation.
Enlarged thyroid gland. Dedicated thyroid ultrasound recommended if not previously evaluated.
Mild upper abdominal ascites.
Splenomegaly. Incompletely a imaged.'
Echocardiogram (as per log haul operator's report)
'CONCLUSIONS
Left ventricle is small in size. Normal left ventricular wall thickness.
Hyperdynamic left ventricular systolic function. Normal regional wall motion.
Estimated left ventricular ejection fraction is 75% by Puga's method of
discs. Normal diastolic function.
Mild to moderately dilated aortic root and ascending aorta. (Sinus of Valsalva
4.5 cm, Sinotubular junction 3.9 cm, Ascending aorta 3.8 cm).
Tricuspid valve opens normally. Mild tricuspid regurgitation. Estimated
pulmonary artery pressure of 38 mmHg assuming a right atrial pressure of 3
mmHg.
Normal right ventricular size and function.'
US Abdomen (as per radiologist's report)
'IMPRESSION:
Trace volume of ascites not sufficient for percutaneous drainage.'
Assessment/Plan
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
He was recently admitted for metabolic encephalopathy. Ammonia level was 25 at that time. Blood cultures were negative. Infectious workup was negative. Possible colitis on CT scan and antibiotics were not pursued.
Patient presents with ongoing encephalopathy, worsened from last admission. Ammonia level under 9. Slight elevation in liver enzymes. CT head negative. Urinalysis unremarkable.
Clinically seems like hepatic encephalopathy although ammonia level under 9. Check abdominal ultrasound given worsening abdominal distention to evaluate for ascites. Patient continues to have diarrhea so unable to give lactulose.
# Acute confusion/dehydration/failure to thrive likely hepatic
# Previously fatigue was thought to be from suboptimally controlled hypothyroidism
-At baseline, patient drives, is able to care for himself as per patient's daughter Stephanie
-UA negative
-CXR with small right pleural effusion
-Head CT with no acute findings
-COVID negative, flu negative
-Squamous cell carcinoma/hypercalcemia contributing?
-Empiric Lactulose to see whether that helps with patient's symptoms
-Consulted neurology, appreciate their evaluation and recommendations
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
-Current dose of patient's thyroid medications are lower than his outpatient regimen -- as of November 2023 - (Levothyroxine Sodium 88 mcg Tablet, 2 Tablet in the morning on empty stomach, once daily; Liothyronine Sodium 5 mcg
tablet 2 tablet 10 mcg orally once a day;
-In August 2022, Total T3 was 0.9, Total T4 was 8.3, and TSH was high at 7.33 (but TSH was previously even higher)
-Dr. Kayla Morales: She just spoke with patient's daughter, discussed hospice if patient doesn't improve, she is agreeable to meet with hospice for information and will talk to her mom about changing code status - not committed to
hospice 100%, but they want to be prepared
# Abdominal distention suspected secondary to overall mild abdominopelvic ascites - progressed.
-As noted in ultrasound of abdomen
-No enough fluid to tap
-Although ammonia normal, empiric lactulose to see whether that helps with mental status
# Metabolic acidosis likely from dehydration - IMPROVING
# Hypercalcemia
-CO2 16
-Received 1 L normal saline in ER
-Monitor BMP in a.m.
-Consulted nephrology as would be a challenge to give additional IV fluids
-Consider Pamidronate 30 mg vs. 60 mg
#Squamous Cell Carcinoma
-Dr. Maya Schaeffer -- candy dipper hand plans to do further surgery
-Contributing to confusion?
-Consulted oncology, appreciate their evaluation and recommendations
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
-Reportedly last drink was 3 weeks ago
-Per outpatient records, patient previously drank 6 ounces of liquor per day and stated that he has started decreasing alcohol consumption but still drinks approximately 5 ounces of Vodka per day
#History of Factor V Leiden and Thrombophilia? Based on outpatient records from August 2022
#Moderate elevation of the right hemidiaphragm on chest x-ray
#Small right pleural effusion on chest x-ray
#Hyperlipidemia: Cont statin
#Hypothyroidism
-Levothyroxine continued
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
-Current dose of patient's thyroid medications are lower than his outpatient regimen -- as of November 2023 - (Levothyroxine Sodium 88 mcg Tablet, 2 Tablet in the morning on empty stomach, once daily; Liothyronine Sodium 5 mcg
tablet 2 tablet 10 mcg orally once a day;
-In August 2022, Total T3 was 0.9, Total T4 was 8.3, and TSH was high at 7.33 (but TSH was previously even higher)
-TSH checked this admission and is high at 22.8
-Increase Levothyroxine to 175 mcg daily (based on outpatient dosing and his high TSH) -- I also discussed this plan with on-call pipe stripper
#GERD: cont famotidine and omeprazole
#Extensive DVT of the right lower extremity from the groin to and including the calf found this hospitalization
#h/o DVT/PE
#IVC Filter in place
-Patient has an IVC filter
-Patient is not an anticoagulation candidate given his low platelets and cirrhosis
-CT Chest showed no PE
DVT Prophylaxis: With significant thrombocytopenia with platelets less than 50k, cannot do chemical DVT prophylaxis. Cannot do SCDs due to DVT. Regardless, patient has an IVC filter in place.
Code Status: FULL CODE
On 03/13/24, I spoke with patient's daughter Stephanie over the phone, and on 03/14/24, I spoke with patient's daughter Stephanie and patient's . All questions and concerns were answered to satisfaction.
Anticipated Discharge: > 48 hours
Subjective/Interval History
-
Date of Service: March 14, 2024
Patient was seen and examined. He appeared to be sleeping comfortably. Patient's and daughter were present in the patient's room.
Objective Data
-
Labs:
Laboratory Results
03/14/24
07:17
WBC 5.8
Hgb 13.4
Hct 40.5
Plt Count 32 L
Vital Signs:
Vital Signs
Temp Pulse Resp BP Pulse Ox
98.6 F 90 18 102/83 92
03/14/24 09:30 03/14/24 09:30 03/14/24 09:30 03/14/24 09:30 03/14/24 09:30
I&O
03/13/24 03/14/24 03/15/24
06:59 06:59 06:59
Intake Total 290 / 290 0 / 0
Output Total 120 / 120
Balance 290 / 290 -120 / -120
--- NOTE | 2024-03-14 13:47 | W.PN.PAL2 ---
Today's Communication
-
Met with daughter at bedside. Patient continues to be lethargic, more confused compared to yesterday - today unable to recognize daughter and . oral intake is poor. infectious workup for his encephalopathy thus far has been unrevealing, current
working diagnosis is that it is secondary to hepatic encephalopathy. notes from other consultants reviewed.
I reviewed outpatient records as well, recommended that we check his thyroid function - has known hx of large thyroid goiter with extension into intrathoracic space (CT 2021 [place]) and hypothyroidism on outpatient records (from PCP in [place]).
per outpatient records in [facility], his prior dose of thyroid meds was levothyroxine 88mcg x 2 tabs daily + Liothyronine 10mg daily. he is currently on a lower dose and last TSH was 26.
Discussed goals of care with daughter. If patient's condition does not improve and further testing is unremarkable, they believe he would want to come home with hospice care. she is agreeable to meet with hospice for informational purposes now, and
then make decision over next few days pending any further testing/results. Given his poor oral intake, fluid intake limited to sips of water, his prognosis is poor. Daughter will talk to her mother later today regarding code status change and
inform.
Assessment / Plan
-
Assessment/Plan:
Continue any further appropriate workup for encephalopathy including TSH to see if there are any correctable causes of his illness
If not improving, family would likely transition to hospice care at home. Daughter agreeable to meeting with hospice for planning and information at this time.
total floor time 40 min
Pain & Symptom Assessment
-
patient is confused, lethargic
Objective Data
-
Objective Data:
Vital Signs
Temp Pulse Resp BP Pulse Ox
98.6 F 90 18 102/83 92
03/14/24 09:30 03/14/24 09:30 03/14/24 09:30 03/14/24 09:30 03/14/24 09:30
Laboratory Results
03/14/24 07:17
03/14/24 00:24
PT 22.6 Sec (11.4-14.6) H 03/13/24 07:44
INR 1.98 03/13/24 07:44
APTT 35.2 Sec (23.4-35.0) H 03/12/24 09:46
Ammonia < 9 umol/L (9-30) L 03/12/24 10:31
Total Protein 5.0 g/dl (6.3-8.2) L 03/13/24 07:04
Albumin 3.2 g/dl (3.5-5.0) L 03/14/24 07:17
Urine Color Elise 03/12/24 12:15
Urine Clarity Clear (Clear) 03/12/24 12:15
Urine pH 5.0 (5.0-9.0) 03/12/24 12:15
Ur Specific [place] 1.025 (<1.030) 03/12/24 12:15
Urine Ketones 2+ (Negative) A 03/12/24 12:15
Urine Bilirubin 2+ (Negative) A 03/12/24 12:15
Palliative Performance Scale
Palliative Performance Scale:
PPS Level Ambulation Activity & Evidence of Disease Self Care Intake Conscious Level
100% Full Normal Activity & Work; Full Intake Full
No Evidence of Disease
90% Full Normal Activity & Work; Full Normal Full
Some Evidence of Disease
80% Full Normal Activity with Effort Full Normal or Full
Some Evidence of Disease Reduced
70% Reduced Unable Normal Job/Work Full Normal or Full
Significant Disease Reduced
60% Reduced Unable Hobby/Housework Occasional Normal or Full or Confusion
Significant Disease Assistance Reduced
50% Mainly Sit/Lie Unable to do Any Work Considerable Normal or Full or Confusion
Extensive Disease Assistance Req'd Reduced
40% Mainly in Bed Unable to do Most Activity Mainly Assistance Normal or Full or Drowsy;
Extensive Disease Reduced +/- Confusion
30% Totally Bed Unable to do Any Activity Total Care Normal or Full or Drowsy;
Bound Extensive Disease Reduced +/- Confusion
20% Totally Bed Bound Unable to do Any Activity Total Care Minimal to Full or Drowsy;
Extensive Disease Sips +/- Confusion
10% Totally Bed Bound Unable to do Any Activity Total Care Mouth Care Drowsy or Coma;
Extensive Disease Only +/- Confusion
0%
PPS Score Level:
Physical Exam
-
General: Comfortable and Appears Chronically Ill
Psych: Confused
lethargic
[2024-03-14 14:50] VITALS: BP 112/61
[2024-03-14 15:45] LABS: Free T4 1.25 ng/dl (0.78-2.19)
[2024-03-14] MEDS: PROTONIX 40 MG PO (17:13)
[2024-03-14 17:43] LABS: B.E. -12.3 mmol/L; O2 Saturation % 92.8 % (94-98); PCO2 22 mmHg (35-48); PO2 67 mmHg (83-108); pH 7.33 (7.35-7.45)
[2024-03-14 18:07] LABS: HCO3 11.6 mmol/L (21-28)
[2024-03-14] MEDS: LACTULOSE ENEMA 300 ML RECTAL (21:47)
[2024-03-14] MEDS: SINGULAIR PO (21:50)
[2024-03-14] MEDS: LIPITOR PO (21:50)
[2024-03-14] MEDS: PEPCID PO (21:50)
[2024-03-14] MEDS: NEURONTIN PO (21:50)
[2024-03-14 22:42] LABS: Lactic Acid 11.6 mmol/L (0.7-2.0)
[2024-03-14 23:09] VITALS: BP 113/60
[2024-03-14 23:50] LABS: Blood Urea Nitrogen 35 mg/dl (9-20); Calcium 11.2 mg/dl (8.4-10.2); Carbon Dioxide 9 mmol/L (22-30); Chloride 109 mmol/L (98-107); Estimated Creatinine Clearance 35 ml/min; Glucose 78 mg/dl (70-99); Potassium 5.2 mmol/L (3.5-5.1); Sodium 144 mmol/L (135-145); eGFR 41.19
[2024-03-15] VITALS (31 sets, daily range): BP systolic 66–198; BP diastolic 31–148; BMI 23.7
[2024-03-15] MEDS: NSS 250 IV (00:32)
[2024-03-15] MEDS: SODIUM BICARBONATE 50 MEQ IV ×2 (00:33→08:16)
[2024-03-15 00:57] LABS: Hematocrit 39.9 % (39.0-52.0); Hemoglobin 12.7 g/dL (13.0-18.0); Mean Corp Hgb Conc. 31.8 g/dL (33.0-37.0); Mean Corpuscular Hgb 27.6 pg (27.0-31.0); Mean Corpuscular Volume 86.7 fL (80.0-94.0); Platelet Count 41 10^3/uL (130-400); Red Cell Dist. Width 21.5 % (11.5-14.5); White Blood Cell Count 9.6 10^3/uL (4.8-10.8)
--- NOTE | 2024-03-15 01:49 | PTCARENOTE ---
Patient received in bed start of shift drowsy and lethargic. Offgoing nurse reported patient was unable to take oral lactulose and showed TT that Dr. Walls suggested lactulose rectally to be ordered but GI md was out of building and was not able
to order remotely. CUSTOMER CONTACT SPECIALIST made aware and lactulose enema ordered. Lactulose enema ordered, patient tolerated, unable to take oral meds due to lethargy. Patient with excessive secretions suctioned with improvement. CUSTOMER CONTACT SPECIALIST also made aware @2246 that lactic
acid was 11.6, with vitals BP 113/60 HR 102 temp 98.0 Pox 92% RA, CUSTOMER CONTACT SPECIALIST in to see patient. CUSTOMER CONTACT SPECIALIST also made aware @0000 that carbon dioxide was 9, patient remains lethargic and drowsy, arousable, no s/s of pain or discomfort. IV push sodium bicarb ordered,
IV bolus 250 mls and CBC lab. Rpt lactic acid lab ordered for AM, plan of care continues.
[2024-03-15] MEDS: OFIRMEV 100 IV (05:26)
[2024-03-15] MEDS: NSS 1000 IV (05:27)
[2024-03-15] MEDS: XOPENEX 0.63 MG INHALANT SOLUTION INH (05:44)
[2024-03-15 05:53] LABS: INR 3.23; PT 33.3 Sec (11.4-14.6)
[2024-03-15 05:54] LABS: B.E. -20.9 mmol/L; O2 Saturation % 98.8 % (94-98); PO2 136 mmHg (83-108)
[2024-03-15 06:00] LABS: HCO3 6.1 mmol/L (21-28); PCO2 18 mmHg (35-48); pH 7.14 (7.35-7.45)
[2024-03-15 06:08] LABS: Hematocrit 44.3 % (39.0-52.0); Hemoglobin 13.7 g/dL (13.0-18.0); Mean Corp Hgb Conc. 30.9 g/dL (33.0-37.0); Mean Corpuscular Hgb 28.1 pg (27.0-31.0); Mean Platelet Volume 11.3 fL (7.4-10.4); Platelet Count 55 10^3/uL (130-400); Red Blood Cell Count 4.87 10^6/uL (4.70-6.10); Red Cell Dist. Width 21.9 % (11.5-14.5); White Blood Cell Count 19.2 10^3/uL (4.8-10.8)
--- NOTE | 2024-03-15 06:12 | W.PN.UPDATE ---
Update Note
Progress Note Update
Notified by RN Lactic for 2100 -�11.6, CO2 18-->9. Rx 50meg sodium bicarb, 500cc NS bolus. Rx STAT CBC - no leukocytosis, repeat Lactic in AM.�
Of note patient has been lethargic all day per nurse, unable to take oral medications.�
Per nursing patient became hypoxic later in the shift in the 80s, RR30s,�hypotensive 70-80SBP, tachy in 110s,�Temp 99.9 Axillary.�
Rx Nonrebreather, 1L bolus, 1mg IV Tylenol,�STAT CXR, Abx�Zithro and Rocephin (CT on 03/13 showed consolidation)�and labs ordered. Patient transferred to IMU.�
Updated SOL Murphy over the phone, who agreed to change patient's code status to DNR.��
[2024-03-15] MEDS: STERILE WATER FOR INJECTION 10 ML IV (06:21)
[2024-03-15] MEDS: ROCEPHIN 1000 MG IV (06:21)
[2024-03-15] MEDS: ZITHROMAX 252.5 MG IV (06:21)
--- NOTE | 2024-03-15 06:21 | W.PN.UPDATE ---
Update Note
Progress Note Update
Patient is hypotensive post IV bolus with sbp in 80s and map 54. Will start Levophed.
[2024-03-15 06:22] LABS: ALT (SGPT) 54 U/L (0-50); AST (SGOT) 159 U/L (17-59); Albumin 3.7 g/dl (3.5-5.0); Alkaline Phosphatase 251 U/L (38-126); Blood Urea Nitrogen 39 mg/dl (9-20); Calcium 11.1 mg/dl (8.4-10.2); Carbon Dioxide 6 mmol/L (22-30); Chloride 109 mmol/L (98-107); Estimated Creatinine Clearance 24 ml/min; Glucose 60 mg/dl (70-99); Lactic Acid 16.3 mmol/L (0.7-2.0); Potassium 5.1 mmol/L (3.5-5.1); Sodium 148 mmol/L (135-145); Total Bilirubin 6.4 mg/dl (0.2-1.3); Total Protein 5.6 g/dl (6.3-8.2); eGFR 26.64
--- NOTE | 2024-03-15 06:31 | TRANSFER ---
pt transferred from floor to 3367 as IMU overflow. pt lethargic, not responding. on 15L NRB, tachypneic, coarse breath sounds noted. BP low, 1L IVF bolus infusing upon arrival, house ORAL SURGEON contacted for further orders, levo gtt ordered. DP pulses
palpable. unable to take PO meds. pt changed, new brief placed. 2 PIVs upon arrival. abx given. code status changed to DNR before arrival. CT chest cancelled. care ongoing.
--- NOTE | 2024-03-15 07:26 | PTCARENOTE ---
Upon doing rounds @0440, patient found to be hypoxic: Patient's RR 33 Pox 86 % RA. Patient placed on O2 with 92% on 5l. ADVOCACY DIRECTOR made aware, Lungs are coarse, diminished, usinng abdominal muscles for breathing, vitals BP 102/46 HR 113 temp 97.8 oral.
Order recommended for xopenex. This nurse asked ADVOCACY DIRECTOR to see patient. ADVOCACY DIRECTOR in to see patient temp 99.9 axillary BP 80/35 HR 113. Patient placed on non rebreather, IV bolus ordered, IV Ofirmev. Patient BP now 95/31 HR 110. Stat orders placed for ABG, CT,
chest X-Ray, Abx�Zithro and Rocephin, order to transfer to IMU. Chest X-Ray completed, report called to DEMETRIS Sher. Patient transferred to room 3367 approximately 0600.
--- NOTE | 2024-03-15 07:42 | PTCARENOTE ---
Patient's code status change to DNR from Full code prior to transferring to room 3367.
--- NOTE | 2024-03-15 07:50 | CON.INTV ---
Consultation
Consultation Request
Date/Time Consultation Requested: 03/15/2024713
Date/Time Consultation Performed: 03/15/2024742
Requesting Provider: Dr. Davis
Performing Provider: Dr. Baez
Reason for Consultation: JENELLE
Medical History
-
Chief Complaint: Not eating/drinking with abdominal distention + worsening confusion
History of Present Illness:
88-year-old male with a past medical history of GERD, hyperlipidemia, DVT/PE, hypothyroidism and alcoholic cirrhosis who initially presented with abdominal distention, worsening confusion and generalized weakness. He was recently hospitalized on
03/05 - 03/07/2024 due to metabolic cephalopathy, and he was on antibiotics at that time due to bandemia and his levothyroxine dose was raised due to an elevated TSH of 26. He does have lytic lesions in his lower thoracic spine with elevated ALP
and oncology was consulted and no biopsy was recommended at that time. Patient's last drink was 2 weeks prior to that admission. He was discharged home with instructions to follow-up with GI/hepatology and his PCP. He was initially admitted
Med/Surg 2 for metabolic encephalopathy.. He now has worsening leukocytosis, metabolic acidosis with serum bicarbonate level of 6, worsening creatinine of 2.3 today from 1.6 on 03/14/2024, and was hypotensive requiring Levophed and is now being
transferred to the ICU for further care. Dispatch Lead services consulted for additional management/recommendations
When I saw the patient, his , Rae, son-in-law, Russ and daughter, bea, were all at bedside. Patient was obtunded. Patient's heart rate was 108, BP 86/47 on Levophed at 20mcg/min, and he was saturating 95% on room air. I answered all the
family's questions and they are interested in withdrawing care and transition to comfort care measures.
PMHx: GERD, hyperlipidemia, hearing loss, hypothyroidism, alcohol cirrhosis, history of DVT/PE, former tobacco use
PSHx: Cholecystectomy, appendectomy and
Past Medical History
Past Medical History: Other (Above as per HPI)
Past Surgical History: Other (Above as per HPI)
Social History
Tobacco: Former Smoker
Alcohol: Former
Drug: None
Personal:
Living: With Family
Family History
Family History: Reviewed & Not Pertinent
Allergies / Home Medications
Allergies
Allergy/AdvReac Type Severity Reaction Status Date / Time
celecoxib [From Celebrex] Allergy Swelling Verified 03/05/24 11:01
Home Medications
�Medication �Instructions �Recorded �Confirmed �Last Taken �Type
biotin 5 mg capsule 5 mg PO DAILY Supplement 03/05/24 03/12/24 03/05/24 History
cholecalciferol (vitamin D3) 25 25 mcg PO DAILY Supplement 03/05/24 03/12/24 03/05/24 History
mcg (1,000 unit) tablet (Vitamin
D3)
cyanocobalamin (vitamin B-12) 1,000 mcg PO DAILY Supplement 03/05/24 03/12/24 03/05/24 History
1,000 mcg tablet
famotidine 40 mg tablet (Pepcid) 40 mg PO HS Gastrointestinal Issue 03/05/24 03/12/24 03/04/24 History
gabapentin 300 mg capsule 300 mg PO HS Pain 03/05/24 03/12/24 03/04/24 History
glucosamine sulf dipot 1 cap PO DAILY Supplement 03/05/24 03/12/24 03/05/24 History
chlr,msm,chond 550 mg-C 30 mg-princess
1 mg capsule (Glucosamine
Chondroitin)
loperamide 2 mg tablet 2 mg PO DAILYPRN PRN dairrhea 03/05/24 03/12/24 03/05/24 History
montelukast 10 mg tablet 10 mg PO HS Allergies 03/05/24 03/12/24 03/04/24 History
(Singulair)
omeprazole 40 mg capsule,delayed 40 mg PO QPM Gastrointestinal Issue 03/05/24 03/12/24 03/04/24 History
release
simvastatin 10 mg tablet (Zocor) 10 mg PO HS High Cholesterol 03/05/24 03/12/24 03/04/24 History
levothyroxine 125 mcg tablet 125 mcg PO DAILY Thyroid 03/12/24 03/12/24 Unknown History
Review of Systems
-
Unable to Obtain full review of systems at this time due to: Acuity
Vitals / Labs / Diagnostic Testing
Vital Signs
Temp Pulse Resp BP Pulse Ox
98.8 F 110 29 158/97 99
03/15/24 08:10 03/15/24 06:45 03/15/24 06:45 03/15/24 06:45 03/15/24 07:39
Lab Data
03/15/24 05:15
Laboratory Results
03/14/24 03/15/24 03/15/24
17:28 05:15 05:38
PT 33.3 H
INR 3.23
pH 7.33 L 7.14 L*
pCO2 22 L 18 L*
pO2 67 L 136 H
HCO3 11.6 L* 6.1 L*
O2 Delivery Level
Microbiology
03/13/24 06:16 Nose MRSA Screen - Final
No Methicillin Resistant Staphylococcus aureus isolated.
03/12/24 12:15 Urine Urine Culture - Final
NO GROWTH
03/12/24 15:49 Nasal Swab Influenza Types A & B (DEREK) - Final
Negative for Influenza A & B, NAAT
Negative results must be combined with clinical observations
and patient history.
Nucleic Acid Amplification test (NAAT)performed on the
[employer] platform.
Diagnostic Testing:
Physical Exam
-
HEENT: Normocephalic and Anicteric
Cardiovascular: S1/S2, Peripheral Edema (negative) and Other (Tachycardic)
Respiratory: Wheeze (negative), Rales (Bilateral), Rhonchi (Bilateral) and Accessory Resp Muscle Use (positive)
GI: Soft, Non Distended, Non Tender and Normal Bowel Sounds
Neurology: Tremors (negative) and Other (Unresponsive)
Skin: Warm and Dry
General: Respiratory Distress (Mild at rest), Fever (negative), Chills (negative) and Sweats (negative)
Assessment
-
Assessment: 88-year-old male with a past medical history of GERD, hyperlipidemia, DVT/PE, hypothyroidism and alcoholic cirrhosis who initially presented with abdominal distention, worsening confusion and generalized weakness. He was recently
hospitalized on 03/05 - 03/07/2024 due to metabolic cephalopathy, and he was on antibiotics at that time due to bandemia and his levothyroxine dose was raised due to an elevated TSH of 26. He does have lytic lesions in his lower thoracic spine with
elevated ALP and oncology was consulted and no biopsy was recommended at that time. Patient's last drink was 2 weeks prior to that admission. He was discharged home with instructions to follow-up with GI/hepatology and his PCP. He was initially
admitted Med/Surg 2 for metabolic encephalopathy.. He now has worsening leukocytosis, metabolic acidosis with serum bicarbonate level of 6, worsening creatinine of 2.3 today from 1.6 on 03/14/2024, and was hypotensive requiring Levophed and is now
being transferred to the ICU for further care. Dispatch Lead services consulted for additional management/recommendations
Chronic conditions PUBLIC ACCOUNTANT: GERD, hyperlipidemia, hearing loss, hypothyroidism, alcohol cirrhosis, history of DVT/PE, former tobacco use
Impression:
#Shock likely due to vasoplegia in the setting of severe metabolic acidosis
#Lactic acidosis
#JENELLE
#Right-sided pleural effusion which is worsened compared to prior CXR on 03/12/2024 with bibasilar opacification suspected to be due to pneumonia (first seen on CTA chest on 03/13/2024)
#Hyperchloremia, hypernatremia
#Leukocytosis
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
#Elevated INR due to cirrhosis
#Severe metabolic acidosis with increased anion gap due to JENELLE and lactic acidosis
#Transaminitis with hyperbilirubinemia
#Hypothyroidism with TSH 22.8 on 03/14/2024
#Elevated right hemidiaphragm
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
Plan:
- Discussion held between myself and the patient's family including his , Xiomara, daughter, Stephanie, and son-in-law, Russ
- Family would like to transition to comfort care measures now and stop the vasopressors
- Stop all medications unless tailored for comfort
- Given that he is in severe JENELLE, would use prn fentanyl vs Dilaudid for air hunger/pain/dyspnea/comfort
- Use prn ativan for anxiety/agitation
- Emotional support was provided
- Pest Control Service Technician services already came and family was satisfied with this
- Stop frequent vital signs and blood draws
Given that patient is being transitioned to comfort care measures, curriculum developer as pulmonary services will now sign off. Thank you for allowing us to be involved in the care of this patient. Call back with any questions or concerns.
Total time spent today was 42 minutes for this encounter. Time includes reviewing laboratory test/imaging results, reviewing pertinent medical records, obtaining and reviewing medical history, performing an appropriate exam, ordering medications,
tests and procedures. Time also includes documentation of this encounter, coordinating patient care and communicating with other healthcare professionals. Total time does not include separately billed tests performed on this date of service.
--- NOTE | 2024-03-15 08:02 | W.CON.NEPH ---
Consultation
-
Date/Time Consultation Requested: 03/14/2024
Date/Time Consultation Performed: 03/15/2024
Requesting Provider: Dr. Jackson
Performing Provider: Dr. Garrison
Reason for Consultation: Acute kidney injury/metabolic acidosis
Medical History
-
Chief Complaint: Acute kidney injury/metabolic acidosis
History of Present Illness:
The patient is an 88-year-old male with a past medical history of hypothyroidism maintained on levothyroxine and statin therapy for dyslipidemia. The patient has a history of known alcoholic cirrhosis. The patient was admitted to the hospital in
04-03 following a recent discharge from the hospital the previous week noted to have worsening confusion and poor oral intake. There was also associated abdominal discomfort with distention and ascites. Over the course of his admission he has
become more acidotic and last evening became hemodynamically stable and transferred to the ICU. He now has a profound metabolic acidosis with a serum pH of 7.14 and acute kidney injury with a creatinine of 2.3 and nephrology was asked to see this
critically ill patient.
Past Medical History
Alcoholic cirrhosis
Hypothyroidism
Dyslipidemia
GERD
Cholecystostomy
Appendectomy
DVT
PE
Social History
Tobacco: Former Smoker
Alcohol: Chronic Alcoholic
Family History
no CKD
Allergies / Home Medications
Allergy/AdvReac Type Severity Reaction Status Date / Time
celecoxib [From Celebrex] Allergy Swelling Verified 03/05/24 11:01
�Medication �Instructions �Recorded �Confirmed �Type
biotin 5 mg capsule 5 mg PO DAILY Supplement 03/05/24 03/12/24 History
cholecalciferol (vitamin D3) 25 25 mcg PO DAILY Supplement 03/05/24 03/12/24 History
mcg (1,000 unit) tablet (Vitamin
D3)
cyanocobalamin (vitamin B-12) 1,000 mcg PO DAILY Supplement 03/05/24 03/12/24 History
1,000 mcg tablet
famotidine 40 mg tablet (Pepcid) 40 mg PO HS Gastrointestinal Issue 03/05/24 03/12/24 History
gabapentin 300 mg capsule 300 mg PO HS Pain 03/05/24 03/12/24 History
glucosamine sulf dipot 1 cap PO DAILY Supplement 03/05/24 03/12/24 History
chlr,msm,chond 550 mg-C 30 mg-princess
1 mg capsule (Glucosamine
Chondroitin)
loperamide 2 mg tablet 2 mg PO DAILYPRN PRN dairrhea 03/05/24 03/12/24 History
montelukast 10 mg tablet 10 mg PO HS Allergies 03/05/24 03/12/24 History
(Singulair)
omeprazole 40 mg capsule,delayed 40 mg PO QPM Gastrointestinal Issue 03/05/24 03/12/24 History
release
simvastatin 10 mg tablet (Zocor) 10 mg PO HS High Cholesterol 03/05/24 03/12/24 History
levothyroxine 125 mcg tablet 125 mcg PO DAILY Thyroid 03/12/24 03/12/24 History
Review of Systems
-
Unable to obtain full review of systems at this time due to: Acuity
All other systems: Negative unless noted
Physical Exam
Vital Signs
Vital Signs
Temp Pulse Resp BP Pulse Ox
99 F 110 29 158/97 99
03/15/24 06:38 03/15/24 06:45 03/15/24 06:45 03/15/24 06:45 03/15/24 07:39
Lab Results
03/15/24 05:15
WBC 19.2 10^3/uL (4.8-10.8) H 03/15/24 05:15
RBC 4.87 10^6/uL (4.70-6.10) 03/15/24 05:15
Hgb 13.7 g/dL (13.0-18.0) 03/15/24 05:15
Hct 44.3 % (39.0-52.0) 03/15/24 05:15
Plt Count 55 10^3/uL (130-400) L D 03/15/24 05:15
eGFR 26.64 03/15/24 05:15
Physical Exam
General: Withdrawn encephalopathic
Respiratory: Coarse to auscultation bilaterally with normal lung exersion
Cardiac: S1/S2 and Regular Rate/Rhythm
Breast: Deferred by me
Abdomen: Soft, Nontender, Nondistended, Normal Bowel Sounds and No Hepatosplenomegaly
Rectal: Deferred by Provider
Genito-urinary: No Costovertebral Tenderness
Extremities: No Clubbing, No Cyanosis and pitting edema
Skin: No Rash or open lesions
Vascular: plus 1 pedal and radial pulses
Unable to perform musculoskeletal and neuroexam due to withdrawn and obtunded state
Data Reviewed
-
Medical Tests (Nuc Med, Echo etc): Report Reviewed by me (Echocardiogram report reviewed)
Labs: Labs Reviewed by me (BMP CBC)
Old Records: Reviewed (Reviewed previous creatinine at 0.8 as of 12/14/2023 in electronic medical)
Assessment/Plan
-
Impression:
Hypotension
Acute kidney injury
Gapped metabolic acidemia (lactic acidosis)
Alcoholic cirrhosis/abdominal ascites
Hypernatremia
Hypothyroidism
Dyslipidemia
Hypercalcemia
Moderate lymphadenopathy within mediastinum
Suspected right lower lobe pneumonia
Plan:
Acute kidney injury and lactic acidosis likely a function of hemodynamic collapse
-Maintain pressors and alkaline IV fluids to keep MAP greater than 65
-Patient is not an appropriate dialysis candidate with either conventional dialysis, which would not be feasible given hemodynamic collapse, or CRRT given advanced comorbidities and DNR status
-Palliative care has already seen patient and I would encourage a conservative course as lactic acidosis continues to exacerbate
-Can adjust IVs to more hypotonic solution giving hypernatremia
-Discussed with family that renal replacement would not be advisable and they concur
-Patient is critically ill with hemodynamic instability with worsening metabolic acidemia and renal failure
-45 minutes critical care time spent with patient
--- NOTE | 2024-03-15 08:30 | W.PN.GI.CBS2 ---
Today's Communication / Plan
-
Please see assessment and plan for details.
Assessment / Plan
-
1. Change in mental status: With worsening signs of possible sepsis, respiratory distress, with worsening acidosis, new acute kidney injury, hypotension. CT scan of the chest did show probable consolidation, possibly more related to pneumonia.
Given his diffuse lymphadenopathy underlying malignancy is also possibility. The patient is now DNR and will continue maximal supportive care, and ICU.
2. Cirrhosis: Secondary to previous alcohol, though overall had been compensated except mild hepatic encephalopathy. Is unclear whether his encephalopathy now is related or not, though either way would continue lactulose. There is not enough
ascites to tap and doubt underlying SBP. I discussed at length with patient's family.
Subjective
Subjective
Date of Service: March 15, 2024
Events noted, patient more lethargic, hypoxic, acidotic, now transferred to ICU, started on broad-spectrum antibiotics. The patient is not responsive, hypotensive, starting on pressors. Ultrasound again reviewed that showed not enough ascites for
tap.
Objective
Data Reviewed
Laboratory Data:
Laboratory Results
03/15/24 05:15
Laboratory Results
PT 33.3 Sec (11.4-14.6) H 03/15/24 05:15
INR 3.23 03/15/24 05:15
APTT 35.2 Sec (23.4-35.0) H 03/12/24 09:46
Total Bilirubin 6.4 mg/dl (0.2-1.3) H D 03/15/24 05:15
AST 159 U/L (17-59) H 03/15/24 05:15
ALT 54 U/L (0-50) H 03/15/24 05:15
Alkaline Phosphatase 251 U/L (38-126) H 03/15/24 05:15
Vital Signs and I&O:
Vital Signs
Temp Pulse Resp BP Pulse Ox
98.8 F 110 29 158/97 99
03/15/24 08:10 03/15/24 06:45 03/15/24 06:45 03/15/24 06:45 03/15/24 07:39
I&O
03/14/24 03/15/24 03/16/24
06:59 06:59 06:59
Intake Total 0 / 0
Output Total 120 / 120
Balance -120 / -120
Physical Exam
Physical Exam
General: Tachypneic, not responsive to stimulus
Abdomen: Normal bowel sounds, soft, no appreciable tenderness, minimal appreciable ascites
[2024-03-15 08:43] LABS: Ammonia 37 umol/L (9-30)
--- NOTE | 2024-03-15 09:04 | W.PN.HOSP.TC ---
Today's Communication/Plan
-
Patient today
Assessment / Plan
Assessment / Plan
Physical Exam (today, prior to patient passing)
General: In mild respiratory distress
HEENT: Normocephalic
Respiratory: Coarse breath sounds bilaterally
Cardiac: S1/S2 and Regular Rhythm
GI: Soft, Non Tender, Normal Bowel Sounds and Distended
Musculoskeletal: No Cyanosis and No Edema
Skin: Warm. Dry.
Neuro: Lethargic

US Periph Venous LOWER Ext Sarkis (as per radiologist's report)
'IMPRESSION:
Extensive DVT of the right lower extremity from the groin to and including the calf.
No evidence of DVT of the left lower extremity'
CT Chest PE Study (as per radiologist's report)
'IMPRESSION: No evidence of pulmonary embolus.
Moderate lymphadenopathy involving the mediastinum, subcarinal region, right hilum, bilateral lower neck and right cardiophrenic region. This may be reactive. Lymphoma and metastatic disease are possibilities as well
Small left lower lobe noncalcified pleural-based pulmonary nodule. Too small for PET imaging. Continued surveillance recommended. This will be emailed to the [facility] pulmonary nodule advisory board.
Moderate right pleural effusion.
Moderate right lower lobe consolidation.
Enlarged thyroid gland. Dedicated thyroid ultrasound recommended if not previously evaluated.
Mild upper abdominal ascites.
Splenomegaly. Incompletely a imaged.'
Echocardiogram (as per nitrate operator's report)
'CONCLUSIONS
Left ventricle is small in size. Normal left ventricular wall thickness.
Hyperdynamic left ventricular systolic function. Normal regional wall motion.
Estimated left ventricular ejection fraction is 75% by Puga's method of
discs. Normal diastolic function.
Mild to moderately dilated aortic root and ascending aorta. (Sinus of Valsalva
4.5 cm, Sinotubular junction 3.9 cm, Ascending aorta 3.8 cm).
Tricuspid valve opens normally. Mild tricuspid regurgitation. Estimated
pulmonary artery pressure of 38 mmHg assuming a right atrial pressure of 3
mmHg.
Normal right ventricular size and function.'
US Abdomen (as per radiologist's report)
'IMPRESSION:
Trace volume of ascites not sufficient for percutaneous drainage.'
Assessment/Plan
# Acute confusion/dehydration/failure to thrive likely hepatic
# Previously fatigue was thought to be from suboptimally controlled hypothyroidism
# Abdominal distention suspected secondary to overall mild abdominopelvic ascites - progressed.
# Metabolic acidosis likely from dehydration - IMPROVING
# Hypercalcemia
# Squamous Cell Carcinoma
# Alcoholic cirrhosis due to alcohol abuse disorder:
# History of Factor V Leiden and Thrombophilia? Based on outpatient records from August 2022
# Moderate elevation of the right hemidiaphragm on chest x-ray
# Small right pleural effusion on chest x-ray
# Hyperlipidemia
# Hypothyroidism
# Gastroesophageal Reflux Disease
#Extensive DVT of the right lower extremity from the groin to and including the calf found this hospitalization
#History of DVT/PE
#IVC Filter in place
-Patient clinically deteriorated overnight 03/14/24 to 03/15/24, with lactic acid 11.6, with significant drop in bicarb 18-->9, and then also becoming hypoxic and hypotensive, requiring transfer to the
ICU.
-Patient was given additional bicarb, and started on antibiotics as well.
-Patient's code status was changed to DNR after night team spoke with patient's daughter.
-Given patient's suspected hepatorenal syndrome with worsening lactic acidosis suspected secondary to at least cirrhosis, with respiratory failure as well as acute renal failure, patient was noted to have
multiple organ dysfunction syndrome and a poor prognosis.
-[employer] discussed on 03/15/24 goals of care with family and family stated they wanted to transition to Comfort Care. Comfort Care orders were placed by [employer] Sales [employer], appreciate [employer].
-Patient on 03/15/24.
Anticipated Discharge: Today
Subjective/Interval History
-
Date of Service: March 15, 2024
Patient was seen and examined. Overnight his clinical condition became worse and he was transferred to the ICU.
Objective Data
-
Labs:
Laboratory Results
03/14/24 03/15/24 03/15/24
23:11 00:30 05:15
WBC 9.6 19.2 H
Hgb 12.7 L 13.7
Hct 39.9 44.3
Plt Count 41 L D 55 L D
PT 33.3 H
INR 3.23
HCO3
Sodium 144 148 H
Potassium 5.2 H 5.1
Chloride 109 H 109 H
Carbon Dioxide 9 L* 6 L*
BUN 35 H 39 H
Creatinine 1.6 H 2.3 H
Glucose 78 60 L
Calcium 11.2 H 11.1 H
Total Bilirubin 6.4 H D
AST 159 H
ALT 54 H
Alkaline Phosphatase 251 H
03/15/24 03/15/24
05:38 11:00
WBC
Hgb
Hct
Plt Count
PT
INR
HCO3 6.1 L*
Sodium Pending
Potassium Pending
Chloride Pending
Carbon Dioxide Pending
BUN Pending
Creatinine Pending
Glucose Pending
Calcium Pending
Total Bilirubin Pending
AST Pending
ALT Pending
Alkaline Phosphatase Pending
Vital Signs:
Vital Signs
Temp Pulse Resp BP Pulse Ox
98.8 F 110 29 158/97 99
03/15/24 08:10 03/15/24 06:45 03/15/24 06:45 03/15/24 06:45 03/15/24 07:39
I&O
03/14/24 03/15/24 03/16/24
06:59 06:59 06:59
Intake Total 0 / 0
Output Total 120 / 120
Balance -120 / -120
--- NOTE | 2024-03-15 09:18 | W.PN.ONC ---
Today's Communication / Plan
-
Recommended hospice and parenteral opiates to avoid air hunger
Discussed with family
Impression
Impression
Decompensation with demise that appears imminent
alcoholic cirrhosis
Hypersplenism/splenomegaly
Confusion
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
Toxic metabolic vs. hepatic encephalopathy
Squamous cell skin cancer
Nonspecific lymphadenopathy
Severe thrombocytopenia likely partially contributed by hypersplenism
Mild neutropenia
Hypercalcemia
Subjective/Objective
Subjective/Objective
Events of last evening noted. Patient appears moribund with coarse upper airway rhonchi.
Vital Signs:
Vital Signs
Temp Pulse Resp BP Pulse Ox
98.8 F 110 29 158/97 99
03/15/24 08:10 03/15/24 06:45 03/15/24 06:45 03/15/24 06:45 03/15/24 07:39
Rhonchi
Tachycardic
Lab Results:
Laboratory Data
WBC 19.2 10^3/uL (4.8-10.8) H 03/15/24 05:15
Hgb 13.7 g/dL (13.0-18.0) 03/15/24 05:15
Plt Count 55 10^3/uL (130-400) L D 03/15/24 05:15
PT 33.3 Sec (11.4-14.6) H 03/15/24 05:15
INR 3.23 03/15/24 05:15
APTT 35.2 Sec (23.4-35.0) H 03/12/24 09:46
eGFR 26.64 03/15/24 05:15
[2024-03-15] MEDS: THIAMINE INJECTION IV (09:22)
[2024-03-15] MEDS: SODIUM BICARBONATE 1150 MEQ IV (09:28)
--- NOTE | 2024-03-15 10:00 | W.PN.UPDATE ---
Update Note
Progress Note Update
Discussed goals of care with family and they would like to transition to comfort care. [facility] hosp[facility] made aware, orders will be placed now.
[2024-03-15] MEDS: DILAUDID 0.5 MG IV ×2 (10:14→11:17)
--- NOTE | 2024-03-15 12:10 | CM ---
CM entered room to speak with family at bedside. Per daughter, her father, Pedro, took his last breath earlier today. Pedro's son took his mother home, as she was distressed. Support provided to daughter. Continuity Clerk offered; daughter declined,
stating she had a visit shortly before CM visit.
No further needs at this time.
--- NOTE | 2024-03-15 12:16 | W.PN.PAL2 ---
Today's Communication
-
PC follow up total time in floor 25 mins [phone], visited with family at bedside earlier today. patient with decline in function, family opted to transition to comfort care. provided support. prognosis is hours.
by the time of documentation of visit, patient had .
Goals of Care Discussion
Patient Goals
on comfort care
Objective Data
-
Objective Data:
Vital Signs
Temp Pulse Resp BP Pulse Ox
98.8 F 107 29 93/46 83
03/15/24 08:10 03/15/24 09:55 03/15/24 09:55 03/15/24 09:55 03/15/24 10:48
Laboratory Results
03/15/24 05:15
PT 33.3 Sec (11.4-14.6) H 03/15/24 05:15
INR 3.23 03/15/24 05:15
APTT 35.2 Sec (23.4-35.0) H 03/12/24 09:46
Ammonia 37 umol/L (9-30) H 03/15/24 08:11
Total Protein 5.6 g/dl (6.3-8.2) L 03/15/24 05:15
Albumin 3.7 g/dl (3.5-5.0) 03/15/24 05:15
Free T4 1.25 ng/dl (0.78-2.19) 03/14/24 07:17
Urine Color Elise 03/12/24 12:15
Urine Clarity Clear (Clear) 03/12/24 12:15
Urine pH 5.0 (5.0-9.0) 03/12/24 12:15
Ur Specific [place] 1.025 (<1.030) 03/12/24 12:15
Urine Ketones 2+ (Negative) A 03/12/24 12:15
Urine Bilirubin 2+ (Negative) A 03/12/24 12:15
Palliative Performance Scale
Palliative Performance Scale:
PPS Level Ambulation Activity & Evidence of Disease Self Care Intake Conscious Level
100% Full Normal Activity & Work; Full Intake Full
No Evidence of Disease
90% Full Normal Activity & Work; Full Normal Full
Some Evidence of Disease
80% Full Normal Activity with Effort Full Normal or Full
Some Evidence of Disease Reduced
70% Reduced Unable Normal Job/Work Full Normal or Full
Significant Disease Reduced
60% Reduced Unable Hobby/Housework Occasional Normal or Full or Confusion
Significant Disease Assistance Reduced
50% Mainly Sit/Lie Unable to do Any Work Considerable Normal or Full or Confusion
Extensive Disease Assistance Req'd Reduced
40% Mainly in Bed Unable to do Most Activity Mainly Assistance Normal or Full or Drowsy;
Extensive Disease Reduced +/- Confusion
30% Totally Bed Unable to do Any Activity Total Care Normal or Full or Drowsy;
Bound Extensive Disease Reduced +/- Confusion
20% Totally Bed Bound Unable to do Any Activity Total Care Minimal to Full or Drowsy;
Extensive Disease Sips +/- Confusion
10% Totally Bed Bound Unable to do Any Activity Total Care Mouth Care Drowsy or Coma;
Extensive Disease Only +/- Confusion
0%
PPS Score Level:
Palliative Performance Score Response
Palliative Performance Score Response: 10%
--- NOTE | 2024-03-15 12:18 | W.PN.DEATH ---
Pronouncement of
-
Called to see patient to pronounce.
No spontaneous heart tones or respirations noted.
Patient not responsive to verbal stimuli.
Patient is pronounced .
Time of : 12:13
Date of : 03/15/24
Cause of : Multiple Organ Dysfunction Syndrome
Family Notified: Yes
--- NOTE | 2024-03-15 12:52 | PTCARENOTE ---
Pt received in bed @ 0700. Minimally rousable to painful stimuli. RR in 30s. SaO2 99% on NRB. Levophed gtt ordered to maintain MAP > 65. Levophed gtt to 20mcg/min without reaching goal. Cargoman at bedside with family for blessing. Family in room
making decision to transition to comfort care. Spoke with Dr. Baez and now comfort orders in place. Levophed gtt discontinued. PRN Dilaudid given for respiratory distress. Pt passed at 12:13, pronounced by Dr. Walls. Patient's wedding ring
and necklace sent home with daughter.
== END 2024-03-15 12:13 | disposition expired | DRG 432 ==
LOC: ICU 15:29
PROVIDERS: Nurse Practitioner Adult Health; Nurse Practitioner Gerontology; Physician Assistant; Registered Nurse; ADMITTING PHYSICIAN Hospitalist; ATTENDING PHYSICIAN Hospitalist; CONSULT PHYSICIAN Internal Medicine Critical Care Medicine; CONSULT PHYSICIAN Internal Medicine Gastroenterology; CONSULT PHYSICIAN Internal Medicine Hospice and Palliative Medicine; CONSULT PHYSICIAN Psychiatry & Neurology Neurology; CONSULT PHYSICIAN Specialist; EMERGENCY PHYSICIAN Emergency Medicine; FAMILY PHYSICIAN Internal Medicine; OTHER PHYSICIAN Internal Medicine Hematology & Oncology; OTHER PHYSICIAN Surgery Vascular Surgery
DX: K70.31 Alcoholic cirrhosis of liver with ascites (principal); A41.9 Sepsis, unspecified organism; J18.9 Pneumonia, unspecified organism; G92.8 Other toxic encephalopathy; E87.20 Acidosis, unspecified; I82.591 Chronic embolism and thrombosis of other specified deep vein of right lower extremity; E87.0 Hyperosmolality and hypernatremia; Z66 Do not resuscitate; Z51.5 Encounter for palliative care; D61.818 Other pancytopenia; N17.9 Acute kidney failure, unspecified; K76.82 Hepatic encephalopathy; E86.0 Dehydration; E03.9 Hypothyroidism, unspecified; R57.8 Other shock; K21.9 Gastro-esophageal reflux disease without esophagitis; E78.00 Pure hypercholesterolemia, unspecified; R62.7 Adult failure to thrive; F10.10 Alcohol abuse, uncomplicated; D69.59 Other secondary thrombocytopenia; C44.92 Squamous cell carcinoma of skin, unspecified; E83.52 Hypercalcemia; D73.1 Hypersplenism; Z11.52 Encounter for screening for COVID-19; Z96.643 Presence of artificial hip joint, bilateral; Z95.828 Presence of other vascular implants and grafts; Z87.891 Personal history of nicotine dependence; Z86.711 Personal history of pulmonary embolism; Z85.828 Personal history of other malignant neoplasm of skin; Z79.890 Hormone replacement therapy; Z88.1 Allergy status to other antibiotic agents; Z79.899 Other long term (current) drug therapy
CPT/HCPCS: 36600; 70450; 71045; 71046; 71275; 76705; 80048; 80053; 80076; 81003; 81015; 82040; 82140; 82805; 83605; 84439; 84443; 85025; 85027; 85610; 85730; 87040; 87070; 87086; 87502; 87811; 93306; 93970; 94640; 96360; 99285; Q9967